=== PATIENT | female | born 1990 | race Caucasian/White ===

== ENCOUNTER 2020-05-02 13:25 | Emergency (ER) | payer MEDICAID ==
[2020-05-02 13:45] VITALS: BP 133/90; PULSE 90; O2SAT 100
[2020-05-02] MEDS ORDERED: MORPHINE SULFATE 4 MG INJ IM ONE (13:45)
[2020-05-02] MEDS ORDERED: MORPHINE SULFATE 4 MG INJ ONE (13:49)
--- NOTE | 2020-05-02 13:50 | ERPHSYRPT ---
- History of Present Illness Time Seen by Provider: 05/02/20 13:35 Source: patient Exam Limitations: no limitations Patient Subjective Stated Complaint: Pt stated that she "has a huge ball at the bottom of my vagina", pt first noticed a little burn last night and then felt a small ball, pt woke in the middle of the night with pain and states that it grew tremendously throughout the night Triage Nursing Assessment: Pt brought to the ER by her boyfriend, low grade fever, vitals wnl, rates pain 8/10, pulses normal, no other isssues at this time Physician History: 29 years old female presented in the ER with chief complaint of right-sided vaginal wall swelling since yesterday. Patient reports she noticed a small pea- sized bump area in the vagina wall last night and she woke up in the middle of the night with swelling almost the size of a walnut, moderate to severe intensity sharp throbbing pain which is aggravated with walking, palpation and no significant relieving factors. She also noticed some clear discharge. Earlier patient was having some burning urination as well. Denies any history of Bartholin cyst abscess in the past. Denies fever or chills. Timing/Duration: yesterday, gradual onset, worse Activites at Onset: rest Quality: sharpness, throbbing Onset Location: vaginal Pain Radiation: none Severity of Pain-Max: moderate Severity of Pain-Current: moderate Modifying Factors: Improves With: movement, palpation, urinating Associated Symptoms: denies symptoms Allergies/Adverse Reactions: No Known Drug Allergies Allergy (Verified 05/02/20 13:45) Travel Risk - International Travel Have you traveled outside of the country in past 3 weeks: No - Coronavirus Screening Are you exhibiting any of the following symptoms?: No Close contact with a COVID-19 positive Pt in past 14-21 Days: No - Review of Systems Constitutional: No Symptoms Eyes: No Symptoms Respiratory: No Symptoms Cardiac: No Symptoms Abdominal/Gastrointestinal: No Symptoms Genitourinary Symptoms: Dysuria, Vaginal Discharge Musculoskeletal: No Symptoms Skin: No Symptoms Neurological: No Symptoms Psychological: No Symptoms Endocrine: No Symptoms Hematologic/Lymphatic: No Symptoms Immunological/Allergic: No Symptoms - Past Medical History Pertinent Past Medical History: No - Past Surgical History Past Surgical History: Yes Musculoskeletal: Orthopedic Surgery Female Surgical History: Dilation & Curettage - Social History Smoking Status: Current every day smoker Exposure to second hand smoke: Yes Drug Use: none Patient Lives Alone: No - Female History Hx Last Menstrual Period: 04/13/2020 Hx Now: No - Nursing Vital Signs Nursing Vital Signs: Initial Vital Signs Temperature 99.8 F 05/02/20 13:31 Pulse Rate 90 05/02/20 13:31 Blood Pressure 133/90 05/02/20 13:31 O2 Sat by Pulse Oximetry 100 05/02/20 13:31 Pain Scale Pain Intensity 8 - Physical Exam General Appearance: no apparent distress Ears, Nose, Throat Exam: normal ENT inspection Neck Exam: normal inspection, supple, full range of motion Respiratory Exam: normal breath sounds, lungs clear Cardiovascular Exam: regular rate/rhythm, normal heart sounds Gastrointestinal/Abdomen Exam: soft, normal bowel sounds, No tenderness Pelvic Exam: vaginal discharge, other (3 x 3 cm swelling in the right upper v agina wall. Tenderness to touch. Soft to firm consistency. Positive fluctuation. ), No vaginal bleeding Extremity Exam: normal inspection, normal range of motion Neurologic Exam: alert, oriented x 3, cooperative Skin Exam: normal color SpO2 Interpretation: normal SpO2: 100 Procedures - Incision and Drainage Timeout: Performed Site: Right vaginal wall Anesthesia: 1% Lidocaine cc's of anesthesia: other (8) I & D Procedure: betadine prep Results: other Progress: Abscess cavity is decompressed. Word catheter is placed in. - Course Nursing assessment & vital signs reviewed: Yes Ordered Tests: Medication Summary Discontinued Medications Generic Name Dose Route Start Last Admin Trade Name Gee PRN Reason Stop Dose Admin Morphine Sulfate 4 mg 05/02/20 13:45 05/02/20 13:53 Morphine Sulfate 4 Mg Inj IM 05/02/20 13:46 4 mg STAT ONE Administration Morphine Sulfate Confirm 05/02/20 13:49 Morphine Sulfate 4 Mg Inj Administered 05/02/20 13:50 Dose 4 mg .ROUTE .STK-MED ONE Trimethoprim/Sulfamethoxazole 1 tab 05/02/20 14:12 05/02/20 14:15 Bactrim Ds Tablet PO 05/02/20 14:13 1 tab STAT STA Administration Trimethoprim/Sulfamethoxazole Confirm 05/02/20 14:14 Bactrim Ds Tablet Administered 05/02/20 14:15 Dose 1 tab PO .STK-MED ONE - Progress Progress: improved, re-examined Air Movement: good Progress Note: patient has Bartholin cyst. After informed consent incision and drainage done. mesa catheter is placed in. Started on antibiotics Bactrim. Outpatient follow-up with [facility]. 05/02/20 14:[address] Garcia, recommended continue with antibiotics, catheter and outpatient follow-up in 5 days. Blood Culture(s) Obtained: No Antibiotics given: Yes Discussed with DrArash: Arie Counseled pt/family regarding: diagnosis, need for follow-up - Departure Departure Disposition: Home Clinical Impression: Infected cyst of Bartholin's gland duct Condition: Stable Critical Care Time: No Referrals: SHON GARCIA DO [ACTIVE STAFF] - (5 days for re evaluation and catheter removal) Instructions: MRSA (DC), Wound Infection Additional Instructions: Keep it clean. Take pain medications as needed. Continue with antibiotics. Follow-up with primary care/[facility] for reevaluation. Use sitz bath. Return to ER for increasing pain swelling discharge/fever or chills. Prescriptions: Hydrocodone/APAP 5-325 Tab^^^ [[place] 5-325 Tablet^^^] 1 tab PO Q6HPRN PRN #10 tablet MDD 6 PRN Reason: Pain Smz/Tmp Ds Tablet [Bactrim Ds Tablet] 1 udtab PO BID #14 tablet
[2020-05-02] MEDS ORDERED: BACTRIM DS TABLET PO STA (14:12)
[2020-05-02] MEDS ORDERED: BACTRIM DS TABLET PO ONE (14:14)
== END 2020-05-02 14:29 | disposition home or self-care (01) ==
LOC: ED 13:25
DX: N75.0 Cyst of Bartholin's gland (principal)
CPT/HCPCS: 96372; 99283; J2270; A9270-GY

== ENCOUNTER 2022-06-22 13:32 | Observation (INO) | payer OTHER ==
[2022-06-22 14:54] LABS: Absolute Neutrophil Ct (ANC) 7.57 x10^3/uL (1.4-6.9); Basophil (Absolute #) 0.03 x10^3/uL (0-0.4); Eosinophil % 1.2 % (0.00-5.0); Eosinophil (Absolute #) 0.12 x10^3/uL (0-0.5); Hematocrit 29.9 % (35-47); Hemoglobin 9.9 g/dL (12.0-16.0); Lymphocyte (Absolute #) 1.42 x10^3/uL (1.0-4.6); Lymphocytes % 14.3 % (24.0-44.0); Mean Cell Volume 97.1 fL (78-100); Mean Corpuscular Hemoglobin 32.1 pg (26-32); Mean Corpuscular Hgb Concent. 33.1 g/dL (32-36); Mean Platelet Volume 10.3 fL (7.5-11.0); Monocytes % 7.1 % (0.0-12.0); Neutrophil % 76.5 % (36.0-66.0); Platelet Count 205 x10^3/uL (150-450); Red Blood Count 3.08 x10^6/uL (4.1-5.4); Red Cell Distribution Width 14.5 % (11.5-14.0); White Blood Count 9.9 x10^3/uL (4.0-10.5)
[2022-06-22 15:13] VITALS: BP 146/82; PULSE 92; O2SAT 97
[2022-06-22 15:13] LABS: ALBUMIN 3.6 g/dL (3.5-5.0); ALKALINE PHOSPHATASE 110 U/L (38-126); ANION GAP 10.9 MEQ/L (5-15); BLOOD UREA NITROGEN 5 mg/dL (7-17); CHLORIDE 109 mmol/L (98-107); Calcium 8.9 mg/dL (8.4-10.2); Carbon Dioxide 17 mmol/L (22-30); Creatinine 1 0.43 mg/dL (0.52-1.04); EST GLOMERULAR FILTRATION RATE > 60.0 ML/MIN; Glucose 99 mg/dL (74-106); Potassium 3.8 mmol/L (3.5-5.1); SGOT/AST 17 U/L (14-36); SGPT/ALT 15 U/L (0-35); SODIUM 134 mmol/L (137-145); Total Protein 6.9 g/dL (6.3-8.2); Uric Acid 5.4 mg/dL (2.6-6.0)
[2022-06-22 15:46] LABS: Appearance CLEAR (CLEAR); Bilirubin NEGATIVE (NEGATIVE); Glucose NEGATIVE (NEGATIVE); Ketones NEGATIVE (NEGATIVE); Nitrite NEGATIVE (NEGATIVE); Protein,Urine Dip NEGATIVE (Negative); RBC TRACE-INTACT Ery/ul (0-5); Urobilinogen 0.2 mg/dL (0-1)
[2022-06-22 15:47] LABS: Dipstick done @ ? MAIN LAB
[2022-06-22 16:04] LABS: Bacteria RARE /HPF (NEGATIVE); Epithelial Cells RARE /HPF (FEW); RBC 0-2 /HPF (0-2); WBC 0-2 /HPF (0-5)
[2022-06-22 16:05] LABS: Urine Cultured Indicated? NO
[2022-06-22 16:09] LABS: Protein Creatinine Ratio, Ran. 0.22 mg/mg (0.0-0.15)
[2022-06-22 16:14] LABS: Amphetamine,Urine NEGATIVE (NEGATIVE); Benzodiazepine,Urine NEGATIVE (NEGATIVE); Cocaine,Urine NEGATIVE (NEGATIVE); Methadone,Urine NEGATIVE (NEGATIVE); Opiate,Urine NEGATIVE (NEGATIVE); PCP,Urine NEGATIVE (NEGATIVE); THC,Urine NEGATIVE (NEGATIVE)
[2022-06-22 16:16] LABS: Barbiturate,Urine NEGATIVE (NEGATIVE)
== END 2022-06-22 16:38 | disposition home or self-care (01) ==
LOC: WHC 13:32 → OB 14:21
PROVIDERS: ADMIT Obstetrics & Gynecology; ATTEND Obstetrics & Gynecology
DX: Z34.82 Encounter for supervision of other normal pregnancy, second trimester (principal); Z3A.27 27 weeks gestation of pregnancy
CPT/HCPCS: 36415; 59425; 80053; 80307; 81002; 81015; 82570; 84156; 84550; 85025; G0378

== ENCOUNTER 2022-08-29 09:58 | Inpatient (IN) | payer OTHER ==
[2022-08-29] MEDS ORDERED: FENTANYL 2 MCG-BUPIV 0.125%-NS 250 ML Epidur 250 ML EPIDURAL SCH (17:00)
[2022-08-29] MEDS ORDERED: Nubain 10 MG/ML IV PRN (17:00)
[2022-08-29] MEDS ORDERED: PITOCIN 30 UNITS/ LR 500 ML 30 UNITS/500 ML PLAST..BAG IV SCH ×2 (17:00)
[2022-08-29] MEDS ORDERED: Lactated Ringers 1,000 ML IV ONE (17:00)
[2022-08-29] MEDS ORDERED: TYLENOL EXTRA STRENGTH 500 MG PO PRN (17:00)
[2022-08-29] MEDS ORDERED: STADOL 2 MG IV PRN (17:00)
[2022-08-29] MEDS ORDERED: XYLOCAINE 1% HCL 20 ML MDV IJ PRN (17:00)
[2022-08-29 18:19] LABS: Amphetamine,Urine NEGATIVE (NEGATIVE); Barbiturate,Urine NEGATIVE (NEGATIVE); Benzodiazepine,Urine NEGATIVE (NEGATIVE); Cocaine,Urine NEGATIVE (NEGATIVE); Methadone,Urine NEGATIVE (NEGATIVE); Opiate,Urine NEGATIVE (NEGATIVE); PCP,Urine NEGATIVE (NEGATIVE); THC,Urine NEGATIVE (NEGATIVE)
[2022-08-29 19:23] LABS: Basophil (Absolute #) 0.03 x10^3/uL (0-0.4); Eosinophil % 1.3 % (0.00-5.0); Eosinophil (Absolute #) 0.13 x10^3/uL (0-0.5); Hemoglobin 9.9 g/dL (12.0-16.0); Lymphocyte (Absolute #) 1.59 x10^3/uL (1.0-4.6); Lymphocytes % 16.3 % (24.0-44.0); Mean Cell Volume 97.5 fL (78-100); Mean Corpuscular Hemoglobin 31.1 pg (26-32); Mean Corpuscular Hgb Concent. 31.9 g/dL (32-36); Mean Platelet Volume 10.6 fL (7.5-11.0); Monocyte (Absolute #) 0.78 x10^3/uL (0.0-1.3); Neutrophil % 73.7 % (36.0-66.0); Platelet Count 233 x10^3/uL (150-450); Red Blood Count 3.18 x10^6/uL (4.1-5.4); Red Cell Distribution Width 14.5 % (11.5-14.0); White Blood Count 9.8 x10^3/uL (4.0-10.5)
[2022-08-29 19:38] LABS: INR 0.9 (0.8-3.0); PROTIME 9.6 SECONDS (9.4-12.5); PTT 29.3 SECONDS (25.1-36.5)
[2022-08-29 20:13] LABS: ABO TYPING O; Antibody Screen NEGATIVE (NEGATIVE); RH TYPING POSITIVE
[2022-08-29] MEDS ORDERED: Dextrose 5%-Lr IV Solution 1000 ML 1,000 ML IV SCH (21:00)
[2022-08-29] MEDS ORDERED: NORCO 5/325 MG PO PRN (21:14)
[2022-08-29] MEDS ORDERED: Mylicon 80MG PO PRN (21:14)
[2022-08-29] MEDS ORDERED: M-M-R II Vaccine With Diluent SQ ONE (21:14)
[2022-08-29] MEDS ORDERED: BRETHINE 1 MG/ML ONE (21:29)
[2022-08-29] MEDS ORDERED: BRETHINE 1 MG/ML SQ ONE (21:34)
[2022-08-29] MEDS ORDERED: SOD CITRATE-CITRIC ACID SOLN PO SCH (22:00)
[2022-08-29] MEDS ORDERED: OMNIPEN 2 GM*** 2 G in Sodium Chloride 100ML MINI-BAG PLUS 100 ML IV ONE (22:00)
[2022-08-29] MEDS ORDERED: Reglan 10 MG/2 ML IV SCH (22:00)
[2022-08-29] MEDS ORDERED: Pepcid 20 MG VIAL IV SCH (22:00)
[2022-08-29] MEDS: Lactated Ringers 1,000 ML IV SCH (22:10)
[2022-08-29 23:21] LABS: Bacteria RARE /HPF (NEGATIVE); Calcium Oxalate Crystals 26-50 /HPF (NEGATIVE); Epithelial Cells RARE /HPF (FEW); Mucus SLIGHT /HPF (NEGATIVE)
[2022-08-29 23:26] LABS: Appearance SLIGHTLY CLOUDY (CLEAR); Bilirubin NEGATIVE (NEGATIVE); Dipstick done @ ? MAIN LAB; Glucose NEGATIVE (NEGATIVE); Ketones NEGATIVE (NEGATIVE); Nitrite NEGATIVE (NEGATIVE); Protein,Urine Dip NEGATIVE (Negative); RBC LARGE Ery/ul (0-5); Urobilinogen 0.2 mg/dL (0-1)
[2022-08-29 23:27] LABS: RBC >101 /HPF (0-2)
[2022-08-29 23:28] LABS: Urine Cultured Indicated? YES
[2022-08-30] MEDS ORDERED: OMNIPEN 1 GM*** 1 GM in Sodium Chloride 100ML MINI-BAG PLUS 100 ML IV SCH (02:00)
[2022-08-30] MEDS: Trandate 100 MG PO SCH ×4 (03:52→23:57)
[2022-08-30] MEDS: Lactated Ringers 1,000 ML IV SCH (04:39)
[2022-08-30] MEDS ORDERED: CEFAZOLIN 2 GM-D5W BAG** 2 GM/50 ML ML IV SCH (07:00)
[2022-08-30] MEDS ORDERED: Zofran 4 MG/2 ML VIAL ONE (07:46)
[2022-08-30] MEDS ORDERED: Pitocin 10 UNITS/ML ONE ×2 (07:46→09:12)
[2022-08-30] MEDS ORDERED: OFIRMEV 100 ML IV ONE (07:47)
[2022-08-30] MEDS ORDERED: Sensorcaine 0.25% 10 ML ONE (07:47)
[2022-08-30] MEDS ORDERED: MORPHINE SULFATE 10 MG/ML ONE (07:48)
[2022-08-30] MEDS ORDERED: Lactated Ringers 1,000 ML IV ONE (07:48)
[2022-08-30] MEDS ORDERED: Astramorph-Pf 5 MG/10 ML ONE (07:50)
[2022-08-30] MEDS ORDERED: M-M-R II Vaccine With Diluent SQ ONE (09:00)
[2022-08-30] MEDS ORDERED: Ephedrine Sulfate 50 MG/ML ONE (09:34)
[2022-08-30] MEDS ORDERED: PHENYLEPHRINE HCL ONE (09:34)
[2022-08-30] MEDS ORDERED: ECOTRIN 81 MG PO SCH (10:00)
[2022-08-30] MEDS ORDERED: Adacel Vial IM ONE (10:00)
[2022-08-30] MEDS ORDERED: ASPIRIN 81 MG PO SCH (10:00)
[2022-08-30] MEDS: Zofran 4 MG/2 ML VIAL IV PRN ×2 (13:09→16:50)
[2022-08-30 14:06] LABS: Appearance CLEAR (CLEAR); Bilirubin NEGATIVE (NEGATIVE); Dipstick done @ ? MAIN LAB; Glucose NEGATIVE (NEGATIVE); Ketones NEGATIVE (NEGATIVE); Nitrite NEGATIVE (NEGATIVE); Protein,Urine Dip NEGATIVE (Negative); RBC NEGATIVE Ery/ul (0-5); Urobilinogen 0.2 mg/dL (0-1)
[2022-08-30 14:31] LABS: Epithelial Cells RARE /HPF (FEW); Mucus SLIGHT /HPF (NEGATIVE); RBC 0-2 /HPF (0-2)
[2022-08-30] MEDS: Docusate Sodium 100 MG PO SCH ×2 (14:56→23:57)
[2022-08-30] MEDS: FERREX 150 PO SCH (14:57)
[2022-08-30] MEDS ORDERED: EXPAREL 133 MG/10 ML VIAL IJ ONE (15:14)
[2022-08-30] MEDS: CEFAZOLIN 2 GM-D5W BAG** 2 GM/50 ML ML IV SCH ×2 (16:47→23:59)
[2022-08-30] MEDS ORDERED: Reglan 10 MG/2 ML IV PRN (17:44)
[2022-08-30] MEDS: ECOTRIN 81 MG PO SCH (20:04)
[2022-08-30] MEDS ORDERED: CLARITIN 10 MG PO PRN (21:36)
[2022-08-30] MEDS ORDERED: BENADRYL 50 MG/ML IV PRN (22:40)
[2022-08-30] MEDS: PERCOCET TABLET 5/325MG PO PRN (23:58)
[2022-08-31] MEDS ORDERED: LANSINOH 40 GM ONE (01:31)
[2022-08-31] MEDS ORDERED: LANSINOH 40 GM TOP PRN (01:49)
[2022-08-31 06:51] LABS: Hematocrit 26.4 % (35-47); Hemoglobin 8.6 g/dL (12.0-16.0); Mean Cell Volume 97.8 fL (78-100); Mean Corpuscular Hemoglobin 31.9 pg (26-32); Mean Corpuscular Hgb Concent. 32.6 g/dL (32-36); Mean Platelet Volume 10.3 fL (7.5-11.0); Platelet Count 212 x10^3/uL (150-450); Red Cell Distribution Width 14.9 % (11.5-14.0); White Blood Count 8.4 x10^3/uL (4.0-10.5)
[2022-08-31] MEDS: PERCOCET TABLET 5/325MG PO PRN (06:58)
--- NOTE | 2022-08-31 07:34 | PCM.NOTE ---
Date and Time: 08/31/22732 Subjective Assessment: pod 1 sp csection pt resting in bed and is able to ambulate and tolerate diet. vss afebrile abd; soft incision with dressing intact with minimal soiling. nondistended uterus; firm lochia; mild hgb; 8.6 a/p sp csection pod 1 anticipate discharge tomorrow cpm OBJECTIVE DATA Vital Signs: Vital Signs - 24 hr Temp Pulse Resp BP Pulse Ox 08/31/22 06:00 92 L 08/31/22 05:00 96 08/31/22 04:00 98.4 F 90 18 112/59 96 08/31/22 03:31 98.6 F 90 18 112/59 96 08/31/22 03:00 97 08/31/22 02:00 95 08/31/22 01:00 95 08/31/22 00:00 98.7 F 81 16 112/59 96 08/30/22 22:47 96 08/30/22 22:00 96 08/30/22 21:00 95 08/30/22 20:00 96 08/30/22 19:00 96 08/30/22 18:27 86 96 08/30/22 18:00 96 08/30/22 17:00 97 08/30/22 16:00 98 08/30/22 15:00 97 08/30/22 13:58 98 08/30/22 13:28 98 08/30/22 12:45 100 H 18 128/75 99 08/30/22 12:28 98 08/30/22 12:27 98.4 F 100 H 18 128/75 99 08/30/22 11:45 98.4 F 81 16 136/78 99 08/30/22 10:45 74 15 106/59 100 08/30/22 10:30 72 15 125/64 100 08/30/22 10:15 76 15 113/63 100 08/30/22 10:00 98.1 F 76 16 113/67 99 Pain Assessment - Last Documented Pain Intensity [Bilateral 3 Lower] Pain Intensity 6 Pain Scale Used 0-10 Pain Scale Intake and Output: Intake & Output 08/28/22 08/29/22 08/30/22 08/31/22 11:59 11:59 11:59 11:59 Intake Total 2500 5900 Output Total 5250 Balance 2500 650 Weight 128.82 kg Lab Results: Lab Results-Last 24 Hours 08/30/22 08/31/22 Range/Units 08:14 06:51 WBC 8.4 (4.0-10.5) x10^3/uL RBC 2.70 L (4.1-5.4) x10^6/uL Hgb 8.6 L (12.0-16.0) g/dL Hct 26.4 L (35-47) % MCV 97.8 (78-100) fL MCH 31.9 (26-32) pg MCHC 32.6 (32-36) g/dL RDW 14.9 H (11.5-14.0) % Plt Count 212 (150-450) x10^3/uL MPV 10.3 (7.5-11.0) fL Urinalys Dipstick Clnc MAIN LAB Urine Color YELLOW (YELLOW) Urine Appearance CLEAR (CLEAR) Urine pH 7.0 (5-6) Ur Specific [place] 1.020 (1.005-1.025) POC Urine Protein Conf NEGATIVE (Negative) Urine Ketones NEGATIVE (NEGATIVE) Urine Nitrite NEGATIVE (NEGATIVE) Urine Bilirubin NEGATIVE (NEGATIVE) Urine Urobilinogen 0.2 (0-1) mg/dL Urine Leukocytes NEGATIVE (NEGATIVE) Urine WBC (Auto) NONE (0-5) /HPF Urine RBC (Auto) 0-2 (0-2) /HPF U Epithel Cells (Auto) RARE (FEW) /HPF Urine Bacteria (Auto) NONE (NEGATIVE) /HPF Urine RBC NEGATIVE (0-5) Issac/ul Urine Mucus (Auto) SLIGHT A (NEGATIVE) /HPF Urine Glucose NEGATIVE (NEGATIVE) mg/dL Assessment/Plan (1) Chronic hypertension affecting Current Visit: Yes Status: Acute Code(s): O10.919 - UNSP PRE-EXISTING HTN COMP , UNSP TRIMESTER (2) S/P primary low transverse Current Visit: Yes Status: Acute Code(s): Z98.891 - HISTORY OF UTERINE SCAR FROM PREVIOUS SURGERY
[2022-08-31] MEDS ORDERED: ENOXAPARIN SODIUM SQ ONE (08:00)
[2022-08-31] MEDS: ECOTRIN 81 MG PO SCH (09:27)
[2022-08-31] MEDS: THERAGRAN MULTIVITAMIN PO SCH (09:27)
[2022-08-31] MEDS: Docusate Sodium 100 MG PO SCH ×2 (09:27→21:50)
[2022-08-31] MEDS: FERREX 150 PO SCH (09:27)
--- NOTE | 2022-08-31 10:08 | OP ---
SURGERY DATE/TIME: 08/30/2022 0748 PREOPERATIVE DIAGNOSIS: Intrauterine at 37 weeks gestation with chronic hypertension with non-reassuring heart rate tracing with repetitive late decelerations and arrest of dilatation. POSTOPERATIVE DIAGNOSIS: Intrauterine at 37 weeks gestation with chronic hypertension with non-reassuring heart rate tracing with repetitive late decelerations and arrest of dilatation. PROCEDURE: Primary section, low flap transverse uterine incision, Pfannenstiel skin incision. SURGEON: Tor Garcia D.O. PARTRIDGE FARMER: Kelsi Carmen, surgical technicians. ANESTHESIA: Spinal. ESTIMATED BLOOD LOSS: 426 cc. COMPLICATIONS: None. INDICATIONS: The risks, benefits, indications and alternatives of the procedure were reviewed with the patient prior to procedure. The patient understood the risk of infection, bleeding, bowel injury, bladder injury, ureteral injury, uterine perforation, pelvic infection and thromboembolic disorder associated with the surgery and desires to have this surgery as a possible means to alleviate her current medical condition. DESCRIPTION OF PROCEDURE AND FINDINGS: At this point the patient is taken to the operating room where her spinal anesthesia was found to be adequate. She was then prepared and draped in normal sterile fashion in the dorsal supine position with leftward tilt. A Pfannenstiel skin incision is made with a scalpel and carried through to the underlying layer of the fascia with a Bovie. The fascia was then incised in the midline and the incision extended laterally with Espinoza scissors. The superior aspect of the fascial incision was then grasped Allie clamps elevated and the underlying rectus muscles dissected off bluntly. Attention is then turned to the inferior aspect of this incision which in similar fashion was grasped, tented up with Allie clamps and the rectus muscles dissected off bluntly. The rectus muscles were then at the midline and the peritoneum identified, tented up and entered sharply with Metzenbaum scissors. The peritoneal incision was then extended superiorly and inferiorly with good visualization of the bladder. The bladder blade was then inserted and vesicouterine peritoneum identified, grasped with pickups and entered sharply with Metzenbaum scissors. This incision was then extended laterally and a bladder flap created digitally. The bladder blade was then re-inserted and the lower uterine segment incised in a transverse fashion with a scalpel. The uterine incision was then extended laterally with bandage scissors. The bladder blade was then removed and the infant's head was delivered atraumatically. The nose and mouth were suctioned with bulb suction and the cord clamped and cut. The infant was then handed off to the awaiting nurses. The placenta was then removed manually. The uterus exteriorized and cleared of all clots and debris. The uterine incision was repaired with 1-0 chromic in a running locked fashion. A second layer of the same suture was used to obtain excellent hemostasis. The uterus is then returned to the abdomen. The gutters were cleared of clots and the peritoneal muscles were closed with interrupted suture using 2-0 chromic suture. The fascia was re-approximated with 0 Vicryl in a running fashion. The subcutaneous layer was closed with 3-0 Vicryl suture and the skin was closed with absorbable raghavendra called INSORB. The patient tolerated the procedure well. Sponge, lap, needle and instrument counts were correct x2. The patient was then taken to the recovery room in stable condition. The patient delivered a live baby boy at 0828 hours. 's were 8 at 1 minute and 9 at 5 minutes. The patient was then taken to the recovery room in stable condition.
[2022-08-31] MEDS: Trandate 100 MG PO SCH ×2 (11:25→21:50)
[2022-08-31 12:17] LABS: HBsAg Screen Negative (Negative)
[2022-08-31 12:18] LABS: HIV Screen 4th Generation wRfx Non Reactive (Non Reactive)
[2022-08-31] MEDS: MOTRIN 400 MG PO PRN (16:39)
[2022-09-01] MEDS: MOTRIN 400 MG PO PRN (00:44)
--- NOTE | 2022-09-01 07:55 | PCM.NOTE ---
Date and Time: 09/01/22 0753 Subjective Assessment: pod 2 sp csection pt resting in bed and doing well however feeling depressed. ambulating and tolerating diet vss afebrile abd; soft incision with dressing intact uterus; firm lochia; mild a/p sp csection pod 2 with depression and htn will continue labetolol 100mg bid will start zoloft 50mg daily will continue iron supplementation monse dc home today should fu office next monday OBJECTIVE DATA Vital Signs: Vital Signs - 24 hr Temp Pulse Resp BP Pulse Ox 09/01/22 02:00 98.2 F 90 18 131/73 97 08/31/22 20:00 98.5 F 96 H 18 144/83 98 08/31/22 14:00 98.6 F 97 H 18 146/74 97 08/31/22 08:25 97.9 F 88 16 122/68 97 Pain Assessment - Last Documented Pain Intensity [Bilateral 2 Lower] Pain Intensity 0 Pain Scale Used 0-10 Pain Scale Intake and Output: Intake & Output 08/29/22 08/30/22 08/31/22 09/01/22 11:59 11:59 11:59 11:59 Intake Total 2500 5900 2300 Output Total 5250 Balance 2500 650 2300 Weight 128.82 kg Lab Results: Lab Results-Last 24 Hours 08/29/22 Range/Units 19:15 Hep Bs Antigen Negative (Negative) HIV 1&2 Ab/P24 Ag 4thGn Non Reactive (Non Reactive) Assessment/Plan (1) Chronic hypertension affecting Current Visit: Yes Status: Acute Code(s): O10.919 - UNSP PRE-EXISTING HTN COMP , UNSP TRIMESTER (2) S/P primary low transverse Current Visit: Yes Status: Acute Code(s): Z98.891 - HISTORY OF UTERINE SCAR FROM PREVIOUS SURGERY (3) depression Current Visit: Yes Status: Acute Code(s): F53.0 - DEPRESSION
--- NOTE | 2022-09-01 08:01 | PCM.DS ---
Discharge Summary Date of Admission: 08/29/22 22:00 Admitting Physician: SHON HEAD DO Consults: Consults on Case 08/29/22 17:00 Notify Anesthesia Provider PRN 08/29/22 21:38 Notify Anesthesia Provider PRN 08/29/22 21:52 Notify Physician OF ADMISSION 08/29/22 21:53 Notify Anesthesia Provider ROUTINE 08/30/22 03:02 Notify Physician OF ADMISSION Primary Care Provider: SHON HEAD DO Allergies Allergies No Known Drug Allergies Allergy (Verified 08/21/22 17:30) Hospital Summary - Hospital Course Hospital Course: pt admitted on aug 29 for induction with cytotec at 37 wks gestation being induced secondary to chronic htn as per advisement from [facility] and had one cytotec and was noted having late decelerations and cytotec subsequently discontinued. pt subsequently underwent csection on aug 30 without complication and was continued on her labetolol however 100mg bid and was stable on that dose. pt was noted having hgb at 8.6 and was advised to take iron supplementation bid. pt declined pain medication upon discharge and was advised to fu in office in 1 wk for incision check and bp evaluation. all questions answered to her satisfaction. pt did feel depressed prior to being discharged and zoloft 50mg was started. - Vitals & Intake/Output Vital Signs: Vital Signs Temperature 98.2 F 09/01/22 02:00 Pulse Rate 90 09/01/22 02:00 Respiratory Rate 18 09/01/22 02:00 Blood Pressure 131/73 09/01/22 02:00 O2 Sat by Pulse Oximetry 97 09/01/22 02:00 Intake & Output: Intake & Output 08/29/22 08/30/22 08/31/22 09/01/22 11:59 11:59 11:59 11:59 Intake Total 2500 5900 2300 Output Total 5250 Balance 2500 650 2300 Weight 128.82 kg - Lab Result Diagrams: 08/31/22 06:51 Lab Results-Last 24 Hrs: Lab Results-Last 24 Hours 08/29/22 Range/Units 19:15 Hep Bs Antigen Negative (Negative) HIV 1&2 Ab/P24 Ag 4thGn Non Reactive (Non Reactive) Micro Results-Entire Visit: Microbiology 08/29/22 17:45 Urine Culture - Final Clean Catch Midstream <10K NORMAL SKIN BRY PROBABLE SKIN CONTAMINANT 08/30/22 08:14 Urine Culture - Preliminary Catherized NO GROWTH TO DATE - Procedures and Test Procedures and Tests throughout Hospitalization: Therapy Orders & Screens 08/29/22 18:32 Smoking Cessation Education ONCE Comment: Diagnosis: CHRONIC HTN, IUGR Smoking Status: Current every day smoker How long have you smoked: 14 years Have you smoked in the past 12 months: Yes Approximately how many cigarettes per day: 7-8 Do you dip or chew tobacco: No 08/30/22 17:53 Standby ROUTINE Comment: Diagnosis: CHRONIC HTN, IUGR Final Diagnosis/Problem List - Final Discharge Diagnosis/Problem (1) Chronic hypertension affecting Current Visit: Yes Status: Acute Code(s): O10.919 - UNSP PRE-EXISTING HTN COMP , UNSP TRIMESTER (2) S/P primary low transverse Current Visit: Yes Status: Acute Code(s): Z98.891 - HISTORY OF UTERINE SCAR FROM PREVIOUS SURGERY (3) depression Current Visit: Yes Status: Acute Code(s): F53.0 - DEPRESSION - Discharge Disposition: Home, Self-Care Condition: Stable Prescriptions: New Sertraline HCl 50 mg [Zoloft 50 mg Tablet] 50 mg PO DAILY #30 tab Changed Labetalol HCl 100 mg [Trandate 100 MG] 100 mg PO BID #60 tablet No Action Vit No.179/Iron/Folic [ Tablet] 1 tab PO DAILY Aspirin [[place]] 81 mg PO DAILY Follow up with: SHON HEAD DO [Primary Care Provider] - 1 Week
[2022-09-01] MEDS: ECOTRIN 81 MG PO SCH (09:50)
[2022-09-01] MEDS: Trandate 100 MG PO SCH (09:50)
[2022-09-01] MEDS: Docusate Sodium 100 MG PO SCH (09:51)
[2022-09-01] MEDS: THERAGRAN MULTIVITAMIN PO SCH (09:51)
[2022-09-01] MEDS: FERREX 150 PO SCH (09:51)
[2022-09-01] MEDS ORDERED: ZOLOFT 50 MG TABLET PO SCH (10:00)
[2022-09-01 12:47] VITALS: PULSE 100
[2022-09-01 17:31] VITALS: BP 156/82; O2SAT 98
== END 2022-09-01 13:00 | disposition home or self-care (01) | DRG 788 ==
LOC: OB 16:56 → OBSVTOIN 22:00 → OB 22:00
PROVIDERS: ADMIT Obstetrics & Gynecology; ATTEND Obstetrics & Gynecology
PROC: 10D00Z1 Extraction of Products of Conception, Low, Open Approach (ICD-10-PCS; principal; 2022-08-30)
DX: O10.913 Unspecified pre-existing hypertension complicating pregnancy, third trimester (principal); O62.1 Secondary uterine inertia; O36.8330 Maternal care for abnormalities of the fetal heart rate or rhythm, third trimester, not applicable or unspecified; Z37.0 Single live birth; Z3A.37 37 weeks gestation of pregnancy; F53.0 Postpartum depression; Z20.828 Contact with and (suspected) exposure to other viral communicable diseases; Z98.891 History of uterine scar from previous surgery
CPT/HCPCS: 36415; 59025; 59514; 64488; 76937; 76942; 80307; 81001; 81015; 84112; 85025; 85027; 85610; 85730; 86850; 86900; 86901; 87086; 87340; 87389; 90384; 90471; 90707; 90715; 94799; 96372; 99213; J0690; J1200; J1650; J2270; J2274; J2370; J2405; J2590; L0625; A9270-GY

== ENCOUNTER 2024-03-21 01:37 | Observation (INO) | payer OTHER ==
[2024-03-21] MEDS ORDERED: Zofran 4 MG/2 ML VIAL ONE (02:20)
[2024-03-21] MEDS ORDERED: Sodium Chloride 0.9% 1000 ML 1,000 ML ONE (02:20)
[2024-03-21] MEDS: Zofran 4 MG/2 ML VIAL IV ONE (02:22)
[2024-03-21] MEDS: Sodium Chloride 0.9% 1000 ML 1,000 ML IV STA (02:22)
--- NOTE | 2024-03-21 02:22 | ERPHSYRPT ---
- History of Present Illness Time Seen by Provider: 03/21/24 02:10 Historian: patient Exam Limitations: no limitations Patient Subjective Stated Complaint: pt states she has been vomiting since monday Triage Nursing Assessment: pt ambulated into the er; pt is axo; CANTWELL; c/o vomiting; pt denies abd pain; c/o N/V denies D; abd is obese, soft, non tender; active bowel sounds in all quads; mucus membranes pink and moist; skin PDW; no respiratory distress present; tachycardic Physician History: 33-year-old female history of hypertension and CANTWELL, presents to emergency department for evaluation of nausea and vomiting. Symptoms started 4 days ago. Patient has not been able to hold down food or liquids. Patient tried to manage her nausea and vomiting at home. She tried to rehydrate herself with electrolyte drinks including Gatorade. This helped for short period however she resumed nausea and vomiting. Patient denies pain. She states her throat is sore but she attributes this to vomiting. No abdominal pain. No vaginal discharge. No urinary complaints. Patient denies fever. Symptoms are constant. Symptoms are moderate in intensity. No specific worsening or improving factors. Patient denies a history of the same. Patient voices no other complaints or concerns at this time. Portions of this note were created with voice recognition technology. There may be grammatical, spelling, punctuation or sound alike errors Timing/Duration: day(s) (4 days) Activities at Onset: none Quality: other (Denies abdominal pain) Pain Radiation: no radiation Severity of Pain-Max: moderate Severity of Pain-Current: moderate Modifying Factors: Improves With: nothing Associated Symptoms: other (Sore throat) Previous symptoms: no prior history Allergies/Adverse Reactions: No Known Drug Allergies Allergy (Verified 03/21/24 01:43) Home Medications: Atorvastatin Calcium 20 mg PO DAILY 03/21/24 [History] Lisinopril/Hydrochlorothiazide [Lisinopril-Hctz 10-12.5 mg Tab] 1 each PO DAILY 03/21/24 [History] Hx Tetanus, Diphtheria Vaccination/Date Given: Yes (08/23) Hx Influenza Vaccination/Date Given: No Hx Pneumococcal Vaccination/Date Given: No Immunizations Up to Date: No Travel Risk - International Travel Have you traveled outside of the country in past 3 weeks: No - Emerging Infectious Disease Are you exhibiting symptoms associated with any current EIDs: Yes Symptoms: Vomitting - Review of Systems Constitutional: No Symptoms, No Fever, No Chills Eyes: No Symptoms Ears, Nose, & Throat: No Symptoms Respiratory: No Symptoms, No Cough, No Dyspnea Cardiac: No Symptoms, No Chest Pain, No Edema, No Syncope Abdominal/Gastrointestinal: No Symptoms, No Abdominal Pain, No Nausea, No Vomiting, No Diarrhea Genitourinary Symptoms: No Symptoms, No Dysuria Musculoskeletal: No Symptoms, No Back Pain, No Neck Pain Skin: No Symptoms, No Rash Neurological: No Symptoms, No Dizziness, No Focal Weakness, No Sensory Changes Psychological: No Symptoms Endocrine: No Symptoms Hematologic/Lymphatic: No Symptoms Immunological/Allergic: No Symptoms All Other Systems: Reviewed and Negative - Past Medical History Pertinent Past Medical History: Yes Neurological History: Migraines ENT History: No Pertinent History Cardiac History: High Cholesterol, Hypertension Respiratory History: No Pertinent History Endocrine Medical History: No Pertinent History Musculoskeletal History: No Pertinent History GI Medical History: No Pertinent History History: No Pertinent History Psycho-Social History: No Pertinent History Female Reproductive Disorders: No Pertinent History - Past Surgical History Past Surgical History: Yes (dnc in 2009) Neuro Surgical History: No Pertinent History Cardiac: No Pertinent History Respiratory: No Pertinent History Gastrointestinal: No Pertinent History Genitourinary: No Pertinent History Musculoskeletal: No Pertinent History Female Surgical History: Dilation & Curettage, Section - Female History Hx Now: No - Social History Smoking Status: Light tobacco smoker How long have you smoked: 14 years Exposure to second hand smoke: Yes Drug Use: none Patient Lives Alone: No - Social Determinants of Health Will the patient participate in the screening: Yes Do you worry about a steady place to live?: No Do you have any problems with any of the following?: No known problems In the past 12 months,have you had to go without utilities?: No Transportation Issues: No Has anyone in your support network made you feel unsafe?: No Have you or anyone in your house had to go without enough: No - Nursing Vital Signs Nursing Vital Signs: Initial Vital Signs Temperature 97.1 F 03/21/24 01:55 Pulse Rate 115 H 03/21/24 01:55 Respiratory Rate 18 03/21/24 01:55 Blood Pressure 106/83 03/21/24 01:55 O2 Sat by Pulse Oximetry 94 L 03/21/24 01:55 Pain Scale Pain Intensity 0 - Physical Exam General Appearance: no apparent distress, alert Eye Exam: PERRL/EOMI, eyes nml inspection Ears, Nose, Throat Exam: normal ENT inspection, pharynx normal, moist mucous membranes Neck Exam: normal inspection, non-tender, supple, full range of motion Respiratory Exam: normal breath sounds, lungs clear, airway intact, No respiratory distress Cardiovascular Exam: regular rate/rhythm, normal heart sounds, normal peripheral pulses Gastrointestinal/Abdomen Exam: soft, No tenderness, No mass Back Exam: normal inspection, normal range of motion, No CVA tenderness, No vertebral tenderness Extremity Exam: normal inspection, normal range of motion, pelvis stable Neurologic Exam: alert, oriented x 3, cooperative, normal mood/affect, sensation nml, No motor deficits Skin Exam: normal color, warm, dry Lymphatic Exam: No adenopathy SpO2 Interpretation: normal SpO2: 96 O2 Delivery: Room Air - Course Nursing assessment & vital signs reviewed: Yes Ordered Tests: Active Orders 24 hr Category Date Time Status IV Insertion STAT Care 03/21/24 02:17 Active CBC W DIFF Stat Lab 03/21/24 02:13 Completed CMP Stat Lab 03/21/24 02:13 Completed HCG QUALITATIVE, URINE Stat Lab 03/21/24 03:33 Completed LIPASE Stat Lab 03/21/24 02:13 Completed TROPONIN Q4H Lab 03/21/24 02:13 Completed TROPONIN Q4H Lab 03/21/24 06:30 Ordered TROPONIN Q4H Lab 03/21/24 10:30 Ordered UA W/RFX UR CULTURE Stat Lab 03/21/24 03:33 Received Transfer Order Routine Transfer 03/21/24 Ordered Medication Summary Discontinued Medications Generic Name Dose Route Start Last Admin Trade Name Freq PRN Reason Stop Dose Admin Sodium Chloride 1,000 mls @ 999 mls/hr 03/21/24 02:17 03/21/24 03:26 Sodium Chloride 0.9% 1000 Ml IV 03/21/24 03:17 Infused .Q1H1M STA Infusion Sodium Chloride Confirm 03/21/24 02:20 Sodium Chloride 0.9% 1000 Ml Administered 03/21/24 02:21 Dose 1,000 mls @ ud .ROUTE .STK-MED ONE Ondansetron HCl 4 mg 03/21/24 02:17 03/21/24 02:22 Ondansetron Hcl 4 Mg/2 Ml Vial IV 03/21/24 02:18 4 mg STAT ONE Administration Ondansetron HCl Confirm 03/21/24 02:20 Ondansetron Hcl 4 Mg/2 Ml Vial Administered 03/21/24 02:21 Dose 4 mg .ROUTE .K-MED ONE Lab/Rad Data: Laboratory Result Diagrams 03/21/24 02:13 03/21/24 02:13 Laboratory Results 03/21/24 03/21/24 03/21/24 Range/Units 03:33 02:13 02:13 WBC (3.98-10.04) x10^3/uL RBC (3.93-5.22) x10^6/uL Hgb (11.2-15.7) g/dL Hct (34.1-44.9) % MCV (79.4-94.8) fL MCH (25.6-32.2) pg MCHC (32.2-35.5) g/dL RDW (11.7-14.4) % Plt Count (182-369) x10^3/uL MPV (9.4-12.3) fL Gran % (34.0-71.1) % Immature Gran % (Auto) (0.001-0.429) % Nucleat RBC Rel Count (0.00-0.2) % Eos # (Auto) (0.04-0.36) x10^3/uL Immature Gran # (Auto) (0.001-0.031) x10^3u/L Absolute Lymphs (auto) (1.18-3.74) x10^3/uL Absolute Monos (auto) (0.24-0.86) x10^3/uL Absolute Nucleated RBC (0.00-0.012) x10^3u/L Lymphocytes % (19.3-51.7) % Monocytes % (4.7-12.5) % Eosinophils % (0.7-5.8) % Basophils % (0.1-1.2) % Absolute Granulocytes (1.56-6.13) x10^3/uL Basophils # (0.01-0.08) x10^3/uL Sodium (135-145) mmol/L Potassium (3.5-5.1) mmol/L Chloride (98-107) mmol/L Carbon Dioxide (22-30) mmol/L Anion Gap (5-15) MEQ/L BUN (7-17) mg/dL Creatinine (0.52-1.04) mg/dL Estimated GFR ML/MIN Glucose (74-106) mg/dL Calcium (8.4-10.2) mg/dL Total Bilirubin (0.2-1.3) mg/dL AST (14-36) U/L ALT (0-35) U/L Alkaline Phosphatase (38-126) U/L Troponin I < 0.012 (0.000-0.033) ng/mL Serum Total Protein (6.3-8.2) g/dL Albumin (3.5-5.0) g/dL Lipase (23-300) U/L Urine HCG, Qual NEGATIVE (NEGATIVE) Group A Strep Antibody NOT DETECTED (NEGATIVE) 03/21/24 03/21/24 Range/Units 02:13 02:13 WBC 11.2 H (3.98-10.04) x10^3/uL RBC 4.34 (3.93-5.22) x10^6/uL Hgb 13.4 (11.2-15.7) g/dL Hct 40.1 (34.1-44.9) % MCV 92.4 (79.4-94.8) fL MCH 30.9 (25.6-32.2) pg MCHC 33.4 (32.2-35.5) g/dL RDW 13.6 (11.7-14.4) % Plt Count 272 (182-369) x10^3/uL MPV 10.6 (9.4-12.3) fL Gran % 78.5 H (34.0-71.1) % Immature Gran % (Auto) 0.4 (0.001-0.429) % Nucleat RBC Rel Count 0.0 (0.00-0.2) % Eos # (Auto) 0.03 L (0.04-0.36) x10^3/uL Immature Gran # (Auto) 0.04 H (0.001-0.031) x10^3u/L Absolute Lymphs (auto) 1.27 (1.18-3.74) x10^3/uL Absolute Monos (auto) 1.02 H (0.24-0.86) x10^3/uL Absolute Nucleated RBC 0.00 (0.00-0.012) x10^3u/L Lymphocytes % 11.3 L (19.3-51.7) % Monocytes % 9.1 (4.7-12.5) % Eosinophils % 0.3 L (0.7-5.8) % Basophils % 0.4 (0.1-1.2) % Absolute Granulocytes 8.79 H (1.56-6.13) x10^3/uL Basophils # 0.04 (0.01-0.08) x10^3/uL Sodium 138 (135-145) mmol/L Potassium 4.1 (3.5-5.1) mmol/L Chloride 100 (98-107) mmol/L Carbon Dioxide 23 (22-30) mmol/L Anion Gap 18.8 H (5-15) MEQ/L BUN 17 (7-17) mg/dL Creatinine 1.98 H (0.52-1.04) mg/dL Estimated GFR 33.4 ML/MIN Glucose 116 H (74-106) mg/dL Calcium 10.0 (8.4-10.2) mg/dL Total Bilirubin 0.70 (0.2-1.3) mg/dL AST 52 H (14-36) U/L ALT 74 H (0-35) U/L Alkaline Phosphatase 117 (38-126) U/L Troponin I (0.000-0.033) ng/mL Serum Total Protein 8.9 H (6.3-8.2) g/dL Albumin 4.7 (3.5-5.0) g/dL Lipase 42 (23-300) U/L Urine HCG, Qual (NEGATIVE) Group A Strep Antibody (NEGATIVE) - Progress Progress: improved Progress Note: 33-year-old female presents to our ED for evaluation of nausea and vomiting x 4 days. Patient had intermittent bouts of improvement over the 4 days and try to rehydrate herself with electrolyte fluids however vomiting eventually recurred. Upon arrival to our ED patient was observed to be tachycardic. Patient denied abdominal pain. No diarrhea. No rash. Physical exam showed hyperpigmentation of posterior tongue. Laboratory workup reveals acute renal injury with a creatinine of 1.98. Patient's last renal function showed a creatinine of 0.8. IV fluids administered. Patient received Zofran for nausea. Nausea improved patient requesting drinking water. Will admit for further evaluation and treatment. Case discussed with hospitalist who accepts admission at 0350. Patient also complained of a sore throat upon arrival. Rapid strep negative Patient now tolerating p.o. However she will require further treatment to restore acute renal injury which is likely prerenal from dehydration/nausea vomiting. Plan of care discussed with patient. She agrees to admission [facility] for further evaluation and treatment. Portions of this note were created with voice recognition technology. There may be grammatical, spelling, punctuation or sound alike errors Complexity problem addressed is moderate acute complicated. No critical care ti me. Complex of data reviewed and analyzed is extensive. Test ordered test reviewed results analyzed and correlated clinically with history and physical exam. Management discussed with hospitalist who accepts admission to observation. Risk of complication and or risk of morbidity/mortality of patient management is high. Patient requires hospitalization for further evaluation and treatment. Vital stable. Tachycardia resolved. Time spent to admit patient approximately 15 minutes. Plan of care established for shared decision making. No social determinants of health present impede follow-up. Portions of this note were created with voice recognition technology. There may be grammatical, spelling, punctuation or sound alike errors 03/21/24 03:55 03/21/24 03:59 UA significant for urinary tract infection. Gram Rocephin administered prior to transfer to floor. 03/21/24 04:13 Discussed with : Haylee (Case discussed with at 0350am) Counseled pt/family regarding: lab results, diagnosis - Departure Departure Disposition: Observation Clinical Impression: Nausea and vomiting, Sore throat, Dehydration, Tachycardia, High anion gap metabolic acidosis, Urinary tract infection, Proteinuria Condition: Stable Critical Care Time: No Referrals: REYNA MONTGOMERY NP [Primary Care Provider] - Follow up/PCP as directed Additional Instructions: Discharge/Care Plan REYNA MARSHALL was seen on 03/21/24 in the Emergency Room. The patient was counseled regarding Diagnosis,Lab results, Imaging studies, need for follow up and when to return to the Emergency Room. Prescriptions given: Discharge Note I have spoken with the patient and/or caregivers. I have explained the patient's condition, diagnosis and treatment plan based on the information available to me at this time. I have answered the patient's and/or caregiver's questions and addressed any concerns. The patient and/or caregivers have as good understanding of the patient's diagnosis, condition and treatment plan as can be expected at this point. The vital signs have been stable. The patient's condition is stable and appropriate for discharge from the emergency department. The patient will pursue further outpatient evaluation with the primary care physician or other designated or consulting physician as outlined in the discharge instructions. The patient and/or caregivers are agreeable to this plan of care and follow-up instructions have been explained in detail. The patient and/or caregivers have received these instruction. The patient/and or caregivers are aware that any significant change in condition or worsening of symptoms should prompt an immediate return to this or the closest emergency department or call 911.
[2024-03-21 02:30] LABS: Absolute Neutrophil Ct (ANC) 8.79 x10^3/uL (1.56-6.13); BASOPHIL % 0.4 % (0.1-1.2); Basophil (Absolute #) 0.04 x10^3/uL (0.01-0.08); Eosinophil % 0.3 % (0.7-5.8); Eosinophil (Absolute #) 0.03 x10^3/uL (0.04-0.36); Hematocrit 40.1 % (34.1-44.9); Hemoglobin 13.4 g/dL (11.2-15.7); IMMATURE GRAN # 0.04 x10^3u/L (0.001-0.031); IMMATURE GRAN % 0.4 % (0.001-0.429); Lymphocyte (Absolute #) 1.27 x10^3/uL (1.18-3.74); Lymphocytes % 11.3 % (19.3-51.7); Mean Cell Volume 92.4 fL (79.4-94.8); Mean Corpuscular Hemoglobin 30.9 pg (25.6-32.2); Mean Corpuscular Hgb Concent. 33.4 g/dL (32.2-35.5); Mean Platelet Volume 10.6 fL (9.4-12.3); Monocyte (Absolute #) 1.02 x10^3/uL (0.24-0.86); Monocytes % 9.1 % (4.7-12.5); Neutrophil % 78.5 % (34.0-71.1); Platelet Count 272 x10^3/uL (182-369); Red Blood Count 4.34 x10^6/uL (3.93-5.22); Red Cell Distribution Width 13.6 % (11.7-14.4); White Blood Count 11.2 x10^3/uL (3.98-10.04)
[2024-03-21 02:42] LABS: ALBUMIN 4.7 g/dL (3.5-5.0); ANION GAP 18.8 MEQ/L (5-15); BILIRUBIN,TOTAL 0.7 mg/dL (0.2-1.3); Creatinine 1 1.98 mg/dL (0.52-1.04); EST GLOMERULAR FILTRATION RATE 33.4 ML/MIN; Potassium 4.1 mmol/L (3.5-5.1); Total Protein 8.9 g/dL (6.3-8.2)
[2024-03-21 03:43] LABS: HCG URINE TEST NEGATIVE (NEGATIVE)
[2024-03-21 04:08] LABS: Appearance Turbid (Clear); Bacteria Many /HPF (None Seen); Bilirubin Small (Negative); Blood Negative (Negative); Epithelial Cells Moderate /HPF (None Seen); Glucose, Urine Negative (Negative); Ketones 15 (Negative); Leukocyte Esterase Small (Negative); Nitrite Negative (Negative); Ph 5.5 (4.6-8.0); Protein,Urine Dip 300 (Negative); RBC 21-50 /HPF (0-5); Specific Gravity 1.025 (1.005-1.030)
[2024-03-21 04:09] LABS: ADD URINE CULTURE? YES (NO); WBC 21-50 /HPF (0-5)
[2024-03-21] MEDS ORDERED: ROCEPHIN 1 GM / 100 ML NaCl 1 GM/100 ML IVPB IV ONE (04:13)
[2024-03-21] MEDS: ROCEPHIN 1 GM / 100 ML NaCl 1 GM/100 ML IVPB IV ONE (04:14)
[2024-03-21] MEDS ORDERED: Docusate Sodium 100 MG PO PRN ×2 (04:42→05:46)
[2024-03-21] MEDS ORDERED: TYLENOL 325 MG PO PRN ×2 (04:42→05:44)
[2024-03-21] MEDS: Sodium Chloride 0.9% 1000 ML 1,000 ML IV SCH ×2 (05:52→06:01)
[2024-03-21] MEDS: PROTONIX 40 MG IV IV SCH ×2 (05:52→06:01)
[2024-03-21 07:44] LABS: Mean Cell Volume 93.8 fL (79.4-94.8); Mean Corpuscular Hemoglobin 31.3 pg (25.6-32.2); Mean Corpuscular Hgb Concent. 33.3 g/dL (32.2-35.5); Mean Platelet Volume 10.7 fL (9.4-12.3); Platelet Count 218 x10^3/uL (182-369); Red Blood Count 3.84 x10^6/uL (3.93-5.22); Red Cell Distribution Width 13.9 % (11.7-14.4); White Blood Count 7.9 x10^3/uL (3.98-10.04)
[2024-03-21 08:05] LABS: ALBUMIN 3.6 g/dL (3.5-5.0); ANION GAP 16.8 MEQ/L (5-15); BILIRUBIN,TOTAL 0.5 mg/dL (0.2-1.3); Calcium 8.8 mg/dL (8.4-10.2); Creatinine 1 1.12 mg/dL (0.52-1.04); EST GLOMERULAR FILTRATION RATE 66.2 ML/MIN; Potassium 3.7 mmol/L (3.5-5.1); Total Protein 6.7 g/dL (6.3-8.2)
[2024-03-21] MEDS ORDERED: Acidophilus TABLET PO SCH (10:00)
[2024-03-21] MEDS ORDERED: NON-FORMULARY ITEM (Atorvastatin Calcium [Atorvastatin Calcium] 20 MG Tablet) PO SCH (10:00)
[2024-03-21] MEDS ORDERED: ROCEPHIN 1 GM / 100 ML NaCl 1 GM/100 ML IVPB IV SCH (10:00)
[2024-03-21] MEDS ORDERED: HEPARIN 5000 UNITS/0.5 ML (HIGH RISK MED) SQ SCH (10:00)
[2024-03-21] MEDS: Acidophilus TABLET PO SCH (10:02)
[2024-03-21] MEDS: HEPARIN 5000 UNITS/0.5 ML (HIGH RISK MED) SQ SCH (10:02)
[2024-03-21] MEDS ORDERED: Zofran 4 MG/2 ML VIAL IV PRN (10:46)
[2024-03-21] MEDS ORDERED: BENADRYL 25 MG CAPSULE PO PRN (10:47)
[2024-03-21] MEDS: BENADRYL 25 MG CAPSULE PO ONE (11:20)
[2024-03-21] MEDS: TYLENOL 325 MG PO PRN (11:20)
[2024-03-21] MEDS: CHLORASEPTIC SPRAY 180 ML PO PRN (11:21)
[2024-03-21] MEDS: PHARMACY DOSING REQUEST MC ONE (11:21)
--- NOTE | 2024-03-21 13:23 | PCM.HP ---
History of Present Illness - Chief Complaint Chief Complaint: N/V Date: 03/21/24 History of Present Illness: is a 33 year old female with pmhx of [place], Migraines, hyperlipidemia, HTN, smoker, and obesity. She presented to emergency department on 03/21/24 for evaluation of nausea and vomiting. Symptoms started 4 days ago. Patient has not been able to hold down food or liquids. Patient tried to manage her nausea and vomiting at home. She tried to rehydrate herself with electrolyte drinks including Gatorade. This helped for short period however she resumed nausea and vomiting. Patient denies pain. She states her throat is sore but she attributes this to vomiting. No abdominal pain. No vaginal discharge. No urinary complaints. Patient denies fever. Symptoms are constant. Symptoms are moderate in intensity. No specific worsening or improving factors. Patient denies a history of the same. Patient voices no other complaints or concerns at this time. Since admission N/V have resolved. DAVIDE improved with IVF. Rocephin started IV for UTI. Benadryl, tylenol, and throat spray added for throat pain. She will likely d/c tomorrow. She denies any further concerns at this time. - Review of Systems Constitutional: No Fever, No Chills Eyes: No Symptoms Ears, Nose, & Throat: No Symptoms, Throat Pain, Hoarse, Painful Swallowing Respiratory: No Cough, No Short Of Breath Cardiac: No Chest Pain, No Edema, No Syncope Abdominal/Gastrointestinal: No Abdominal Pain, No Nausea, No Vomiting, No Diarrhea Genitourinary Symptoms: No Dysuria Musculoskeletal: No Back Pain, No Neck Pain Skin: No Rash Neurological: No Dizziness, No Focal Weakness, No Sensory Changes Psychological: No Symptoms Endocrine: No Symptoms Hematologic/Lymphatic: No Symptoms Immunological/Allergic: No Symptoms Medications & Allergies Home Medications: Home Medication List Atorvastatin Calcium 20 mg PO 1500 03/21/24 [History Confirmed 03/21/24] Lisinopril/Hydrochlorothiazide [Lisinopril-Hctz 10-12.5 mg Tab] 1 each PO 1500 03/21/24 [History Confirmed 03/21/24] Allergies/Adverse Reactions: Allergies Allergy/AdvReac Type Severity Reaction Status Date / Time No Known Drug Allergies Allergy Verified 03/21/24 01:43 - Past Medical History Past Medical History: Yes Neurological History: Migraines ENT History: No Pertinent History Cardiac History: High Cholesterol, Hypertension Respiratory History: No Pertinent History Endocrine Medical History: No Pertinent History Musculoskelatal History: No Pertinent History GI Medical History: No Pertinent History History: No Pertinent History Pyscho-Social History: No Pertinent History Reproductive Disorders: No Pertinent History - Female History Are you now?: No - Past Surgical History Past Surgical History: Yes (dnc in 2009) Neuro Surgical History: No Pertinent History Cardiac History: No Pertinent History Respiratory Surgery: No Pertinent History GI Surgical History: No Pertinent History Genitourinary Surgical Hx: No Pertinent History Musculskeletal Surgical Hx: No Pertinent History Female Surgical History: Dilation & Curettage, Section - Social History Smoking Status: Unknown if ever smoked How long have you smoked: 14 years Exposure to second hand smoke: Yes Alcohol: None Drug Use: none - Social Determinants of Health Will the patient participate in the screening: Yes Do you worry about a steady place to live?: No Do you have any problems with any of the following?: No known problems In the past 12 months,have you had to go without utilities?: No Have you or anyone in your house had to go without enough: No Transportation Issues: No Has anyone in your support network made you feel unsafe?: No Does the patient want assistance with any of the above?: No - Physical Exam Vital Signs: Vital Signs - 24 hr Temp Pulse Resp BP BP Pulse Ox 03/21/24 11:38 98.1 F 86 18 132/65 93 L 03/21/24 08:00 98.6 F 95 H 20 121/79 91 L 03/21/24 05:04 96 03/21/24 04:56 98.4 F 109 H 18 125/73 97 03/21/24 04:14 96 03/21/24 04:00 93 H 106/81 98 03/21/24 03:32 92 H 138/87 97 03/21/24 03:00 102 H 112/78 95 03/21/24 02:30 99 H 101/70 96 03/21/24 02:00 107 H 99/74 96 03/21/24 01:55 97.1 F 115 H 18 106/83 94 L General Appearance: no apparent distress, alert, obese Neurologic Exam: alert, oriented x 3, cooperative, normal mood/affect, nml cerebellar function, nml station & gait, sensation nml, No motor deficits Eye Exam: PERRL/EOMI, eyes nml inspection Ears, Nose, Throat Exam: normal ENT inspection, TMs normal, pharynx normal, moist mucous membranes, pharyngeal erythema Neck Exam: normal inspection, non-tender, supple, full range of motion Respiratory Exam: normal breath sounds, lungs clear, No respiratory distress Cardiovascular Exam: regular rate/rhythm, normal heart sounds, normal peripheral pulses Gastrointestinal/Abdomen Exam: soft, normal bowel sounds, No tenderness, No mass Back Exam: normal inspection, normal range of motion, No CVA tenderness, No vertebral tenderness Extremity Exam: normal inspection, normal range of motion, pelvis stable Skin Exam: normal color, warm, dry, No rash Lymphatic Exam: No adenopathy Results - Labs Lab/Micro Results: Lab Results-Last 24 Hours 03/21/24 03/21/24 03/21/24 Range/Units 02:13 02:13 02:13 WBC 11.2 H (3.98-10.04) x10^3/uL RBC 4.34 (3.93-5.22) x10^6/uL Hgb 13.4 (11.2-15.7) g/dL Hct 40.1 (34.1-44.9) % MCV 92.4 (79.4-94.8) fL MCH 30.9 (25.6-32.2) pg MCHC 33.4 (32.2-35.5) g/dL RDW 13.6 (11.7-14.4) % Plt Count 272 (182-369) x10^3/uL MPV 10.6 (9.4-12.3) fL Gran % 78.5 H (34.0-71.1) % Immature Gran % (Auto) 0.4 (0.001-0.429) % Nucleat RBC Rel Count 0.0 (0.00-0.2) % Eos # (Auto) 0.03 L (0.04-0.36) x10^3/uL Immature Gran # (Auto) 0.04 H (0.001-0.031) x10^3u/L Absolute Lymphs (auto) 1.27 (1.18-3.74) x10^3/uL Absolute Monos (auto) 1.02 H (0.24-0.86) x10^3/uL Absolute Nucleated RBC 0.00 (0.00-0.012) x10^3u/L Lymphocytes % 11.3 L (19.3-51.7) % Monocytes % 9.1 (4.7-12.5) % Eosinophils % 0.3 L (0.7-5.8) % Basophils % 0.4 (0.1-1.2) % Absolute Granulocytes 8.79 H (1.56-6.13) x10^3/uL Basophils # 0.04 (0.01-0.08) x10^3/uL Sodium 138 (135-145) mmol/L Potassium 4.1 (3.5-5.1) mmol/L Chloride 100 (98-107) mmol/L Carbon Dioxide 23 (22-30) mmol/L Anion Gap 18.8 H (5-15) MEQ/L BUN 17 (7-17) mg/dL Creatinine 1.98 H (0.52-1.04) mg/dL Estimated GFR 33.4 ML/MIN Glucose 116 H (74-106) mg/dL Calcium 10.0 (8.4-10.2) mg/dL Total Bilirubin 0.70 (0.2-1.3) mg/dL AST 52 H (14-36) U/L ALT 74 H (0-35) U/L Alkaline Phosphatase 117 (38-126) U/L Troponin I < 0.012 (0.000-0.033) ng/mL Serum Total Protein 8.9 H (6.3-8.2) g/dL Albumin 4.7 (3.5-5.0) g/dL Lipase 42 (23-300) U/L Urine Color (Yellow) Urine Appearance (Clear) Urine pH (4.6-8.0) Ur Specific [place] (1.005-1.030) Urine Protein (Negative) Urine Glucose (UA) (Negative) mg/dL Urine Ketones (Negative) Urine Blood (Negative) Urine Nitrite (Negative) Urine Bilirubin (Negative) Urine Urobilinogen (0.2) mg/dL Ur Leukocyte Esterase (Negative) U Hyaline Cast (Auto) (0-2) /LPF Urine Microscopic RBC (0-5) /HPF Urine Microscopic WBC (0-5) /HPF Ur Epithelial Cells (None Seen) /HPF Urine Bacteria (None Seen) /HPF Urine Culture Reflexed (NO) Urine HCG, Qual (NEGATIVE) Group A Strep Antibody (NEGATIVE) 03/21/24 03/21/24 03/21/24 Range/Units 02:13 03:33 03:33 WBC (3.98-10.04) x10^3/uL RBC (3.93-5.22) x10^6/uL Hgb (11.2-15.7) g/dL Hct (34.1-44.9) % MCV (79.4-94.8) fL MCH (25.6-32.2) pg MCHC (32.2-35.5) g/dL RDW (11.7-14.4) % Plt Count (182-369) x10^3/uL MPV (9.4-12.3) fL Gran % (34.0-71.1) % Immature Gran % (Auto) (0.001-0.429) % Nucleat RBC Rel Count (0.00-0.2) % Eos # (Auto) (0.04-0.36) x10^3/uL Immature Gran # (Auto) (0.001-0.031) x10^3u/L Absolute Lymphs (auto) (1.18-3.74) x10^3/uL Absolute Monos (auto) (0.24-0.86) x10^3/uL Absolute Nucleated RBC (0.00-0.012) x10^3u/L Lymphocytes % (19.3-51.7) % Monocytes % (4.7-12.5) % Eosinophils % (0.7-5.8) % Basophils % (0.1-1.2) % Absolute Granulocytes (1.56-6.13) x10^3/uL Basophils # (0.01-0.08) x10^3/uL Sodium (135-145) mmol/L Potassium (3.5-5.1) mmol/L Chloride (98-107) mmol/L Carbon Dioxide (22-30) mmol/L Anion Gap (5-15) MEQ/L BUN (7-17) mg/dL Creatinine (0.52-1.04) mg/dL Estimated GFR ML/MIN Glucose (74-106) mg/dL Calcium (8.4-10.2) mg/dL Total Bilirubin (0.2-1.3) mg/dL AST (14-36) U/L ALT (0-35) U/L Alkaline Phosphatase (38-126) U/L Troponin I (0.000-0.033) ng/mL Serum Total Protein (6.3-8.2) g/dL Albumin (3.5-5.0) g/dL Lipase (23-300) U/L Urine Color Dark Yellow A (Yellow) Urine Appearance Turbid A (Clear) Urine pH 5.5 (4.6-8.0) Ur Specific [place] 1.025 (1.005-1.030) Urine Protein 300 A (Negative) Urine Glucose (UA) Negative (Negative) mg/dL Urine Ketones 15 A (Negative) Urine Blood Negative (Negative) Urine Nitrite Negative (Negative) Urine Bilirubin Small A (Negative) Urine Urobilinogen 1.0 A (0.2) mg/dL Ur Leukocyte Esterase Small A (Negative) U Hyaline Cast (Auto) 11-20 (0-2) /LPF Urine Microscopic RBC 21-50 A (0-5) /HPF Urine Microscopic WBC 21-50 A (0-5) /HPF Ur Epithelial Cells Moderate A (None Seen) /HPF Urine Bacteria Many A (None Seen) /HPF Urine Culture Reflexed YES (NO) Urine HCG, Qual NEGATIVE (NEGATIVE) Group A Strep Antibody NOT DETECTED (NEGATIVE) 03/21/24 03/21/24 03/21/24 Range/Units 06:50 06:50 06:50 WBC 7.9 (3.98-10.04) x10^3/uL RBC 3.84 L (3.93-5.22) x10^6/uL Hgb 12.0 (11.2-15.7) g/dL Hct 36.0 (34.1-44.9) % MCV 93.8 (79.4-94.8) fL MCH 31.3 (25.6-32.2) pg MCHC 33.3 (32.2-35.5) g/dL RDW 13.9 (11.7-14.4) % Plt Count 218 (182-369) x10^3/uL MPV 10.7 (9.4-12.3) fL Gran % (34.0-71.1) % Immature Gran % (Auto) (0.001-0.429) % Nucleat RBC Rel Count (0.00-0.2) % Eos # (Auto) (0.04-0.36) x10^3/uL Immature Gran # (Auto) (0.001-0.031) x10^3u/L Absolute Lymphs (auto) (1.18-3.74) x10^3/uL Absolute Monos (auto) (0.24-0.86) x10^3/uL Absolute Nucleated RBC (0.00-0.012) x10^3u/L Lymphocytes % (19.3-51.7) % Monocytes % (4.7-12.5) % Eosinophils % (0.7-5.8) % Basophils % (0.1-1.2) % Absolute Granulocytes (1.56-6.13) x10^3/uL Basophils # (0.01-0.08) x10^3/uL Sodium 140 (135-145) mmol/L Potassium 3.7 (3.5-5.1) mmol/L Chloride 106 (98-107) mmol/L Carbon Dioxide 21 L (22-30) mmol/L Anion Gap 16.8 H (5-15) MEQ/L BUN 17 (7-17) mg/dL Creatinine 1.12 H (0.52-1.04) mg/dL Estimated GFR 66.2 ML/MIN Glucose 96 (74-106) mg/dL Calcium 8.8 (8.4-10.2) mg/dL Total Bilirubin 0.50 (0.2-1.3) mg/dL AST 43 H (14-36) U/L ALT 61 H (0-35) U/L Alkaline Phosphatase 104 (38-126) U/L Troponin I < 0.012 (0.000-0.033) ng/mL Serum Total Protein 6.7 (6.3-8.2) g/dL Albumin 3.6 (3.5-5.0) g/dL Lipase (23-300) U/L Urine Color (Yellow) Urine Appearance (Clear) Urine pH (4.6-8.0) Ur Specific [place] (1.005-1.030) Urine Protein (Negative) Urine Glucose (UA) (Negative) mg/dL Urine Ketones (Negative) Urine Blood (Negative) Urine Nitrite (Negative) Urine Bilirubin (Negative) Urine Urobilinogen (0.2) mg/dL Ur Leukocyte Esterase (Negative) U Hyaline Cast (Auto) (0-2) /LPF Urine Microscopic RBC (0-5) /HPF Urine Microscopic WBC (0-5) /HPF Ur Epithelial Cells (None Seen) /HPF Urine Bacteria (None Seen) /HPF Urine Culture Reflexed (NO) Urine HCG, Qual (NEGATIVE) Group A Strep Antibody (NEGATIVE) 03/21/24 Range/Units 10:38 WBC (3.98-10.04) x10^3/uL RBC (3.93-5.22) x10^6/uL Hgb (11.2-15.7) g/dL Hct (34.1-44.9) % MCV (79.4-94.8) fL MCH (25.6-32.2) pg MCHC (32.2-35.5) g/dL RDW (11.7-14.4) % Plt Count (182-369) x10^3/uL MPV (9.4-12.3) fL Gran % (34.0-71.1) % Immature Gran % (Auto) (0.001-0.429) % Nucleat RBC Rel Count (0.00-0.2) % Eos # (Auto) (0.04-0.36) x10^3/uL Immature Gran # (Auto) (0.001-0.031) x10^3u/L Absolute Lymphs (auto) (1.18-3.74) x10^3/uL Absolute Monos (auto) (0.24-0.86) x10^3/uL Absolute Nucleated RBC (0.00-0.012) x10^3u/L Lymphocytes % (19.3-51.7) % Monocytes % (4.7-12.5) % Eosinophils % (0.7-5.8) % Basophils % (0.1-1.2) % Absolute Granulocytes (1.56-6.13) x10^3/uL Basophils # (0.01-0.08) x10^3/uL Sodium (135-145) mmol/L Potassium (3.5-5.1) mmol/L Chloride (98-107) mmol/L Carbon Dioxide (22-30) mmol/L Anion Gap (5-15) MEQ/L BUN (7-17) mg/dL Creatinine (0.52-1.04) mg/dL Estimated GFR ML/MIN Glucose (74-106) mg/dL Calcium (8.4-10.2) mg/dL Total Bilirubin (0.2-1.3) mg/dL AST (14-36) U/L ALT (0-35) U/L Alkaline Phosphatase (38-126) U/L Troponin I < 0.012 (0.000-0.033) ng/mL Serum Total Protein (6.3-8.2) g/dL Albumin (3.5-5.0) g/dL Lipase (23-300) U/L Urine Color (Yellow) Urine Appearance (Clear) Urine pH (4.6-8.0) Ur Specific [place] (1.005-1.030) Urine Protein (Negative) Urine Glucose (UA) (Negative) mg/dL Urine Ketones (Negative) Urine Blood (Negative) Urine Nitrite (Negative) Urine Bilirubin (Negative) Urine Urobilinogen (0.2) mg/dL Ur Leukocyte Esterase (Negative) U Hyaline Cast (Auto) (0-2) /LPF Urine Microscopic RBC (0-5) /HPF Urine Microscopic WBC (0-5) /HPF Ur Epithelial Cells (None Seen) /HPF Urine Bacteria (None Seen) /HPF Urine Culture Reflexed (NO) Urine HCG, Qual (NEGATIVE) Group A Strep Antibody (NEGATIVE) Assessment/Plan (1) Nausea and vomiting Current Visit: Yes Status: Resolved Assessment & Plan: - Zofran PRN - IVF - refuses tele Code(s): R11.2 - NAUSEA WITH VOMITING, UNSPECIFIED (2) DAVIDE (acute kidney injury) Current Visit: Yes Status: Acute Assessment & Plan: - improving, creat 1.12- baseline 0.80 - 2:2 N/V, dehydration Code(s): N17.9 - ACUTE KIDNEY FAILURE, UNSPECIFIED (3) Dehydration Current Visit: Yes Status: Acute Assessment & Plan: - 2:2 N/V - Continue IVF - monitor labs Code(s): E86.0 - DEHYDRATION (4) High anion gap metabolic acidosis Current Visit: Yes Status: Acute Assessment & Plan: - 2:2 N/V - Improving anion gap 16.8 - IVF Code(s): E87.29 - OTHER ACIDOSIS (5) Sore throat Current Visit: Yes Status: Acute Assessment & Plan: - 2:2 N/V - Benadryl, tylenol, throat spray - refused cough drops Code(s): J02.9 - ACUTE PHARYNGITIS, UNSPECIFIED (6) Urinary tract infection Current Visit: Yes Status: Acute Assessment & Plan: - Rocephin IV - IVF - UC pending Code(s): N39.0 - URINARY TRACT INFECTION, SITE NOT SPECIFIED (7) Morbid obesity with BMI of 45.0-49.9, adult Current Visit: Yes Status: Chronic Assessment & Plan: advised diet and exercise control VTE: Heparin PPI: Pantoprazole Next of KIN: Hattie Bradford [phone] D/C plan: tomorrow Code status: Full Code(s): E66.01 - MORBID (SEVERE) OBESITY DUE TO EXCESS CALORIES; Z68.42 - BODY MASS INDEX [BMI] 45.0-49.9, ADULT
[2024-03-21] MEDS: ZOCOR 20MG PO SCH (20:29)
[2024-03-21 21:19] VITALS: O2SAT 95
[2024-03-22 05:15] LABS: Hematocrit 33.1 % (34.1-44.9); Hemoglobin 10.9 g/dL (11.2-15.7); Mean Cell Volume 93.5 fL (79.4-94.8); Mean Corpuscular Hemoglobin 30.8 pg (25.6-32.2); Mean Corpuscular Hgb Concent. 32.9 g/dL (32.2-35.5); Mean Platelet Volume 10.5 fL (9.4-12.3); Platelet Count 196 x10^3/uL (182-369); Red Blood Count 3.54 x10^6/uL (3.93-5.22); Red Cell Distribution Width 13.6 % (11.7-14.4); White Blood Count 5.1 x10^3/uL (3.98-10.04)
[2024-03-22 05:52] LABS: ANION GAP 12.4 MEQ/L (5-15); Calcium 8.4 mg/dL (8.4-10.2); Creatinine 1 0.67 mg/dL (0.52-1.04); EST GLOMERULAR FILTRATION RATE 117.6 ML/MIN; Potassium 3.9 mmol/L (3.5-5.1)
[2024-03-22 07:14] VITALS: BP 127/82; PULSE 75; RESP 18; TEMP 97.6
--- NOTE | 2024-03-22 10:57 | PCM.DS ---
Discharge Summary Date of Admission: 03/21/24 04:38 Date of Discharge: 03/22/24 Admitting Physician: KALPANA BLACK MD Primary Care Provider: REYNA MONTGOMERY Allergies Allergies No Known Drug Allergies Allergy (Verified 03/21/24 01:43) Hospital Summary - Hospital Course Hospital Course: 03/21/24 is a 33 year old female with pmhx of [place], Migraines, hyperlipidemia, HTN, smoker, and obesity. She presented to emergency department on 03/21/24 for evaluation of nausea and vomiting. Symptoms started 4 days ago. Patient has not been able to hold down food or liquids. Patient tried to manage her nausea and vomiting at home. She tried to rehydrate herself with electrolyte drinks including Gatorade. This helped for short period however she resumed nausea and vomiting. Patient denies pain. She states her throat is sore but she attrib utes this to vomiting. No abdominal pain. No vaginal discharge. No urinary complaints. Patient denies fever. Symptoms are constant. Symptoms are moderate in intensity. No specific worsening or improving factors. Patient denies a history of the same. Patient voices no other complaints or concerns at this time. Since admission N/V have resolved. DAVIDE improved with IVF. Rocephin started IV for UTI. Benadryl, tylenol, and throat spray added for throat pain. She will likely d/c tomorrow. She denies any further concerns at this time. 03/22/24 Pt resting in bed. She is feeling much better today and throat is not as sore. DAVIDE has resolved. She is no longer having N/V. Will continue continue antibiotics OP for UTI. UC pending and will continue to follow OP. She denies CP, SOB, abd. pain , N/V/D. - Vitals & Intake/Output Vital Signs: Vital Signs Temperature 97.6 F 03/22/24 07:14 Pulse Rate 75 03/22/24 07:14 Respiratory Rate 18 03/22/24 07:14 Blood Pressure 127/82 03/22/24 07:14 O2 Sat by Pulse Oximetry 95 03/22/24 07:14 Intake & Output: Intake & Output 03/19/24 03/20/24 03/21/24 03/22/24 11:59 11:59 11:59 11:59 Intake Total 320 3300 Balance 320 3300 Weight 137.212 kg - Lab Result Diagrams: 03/22/24 04:53 03/22/24 04:53 Lab Results-Last 24 Hrs: Lab Results-Last 24 Hours 03/21/24 03/22/24 03/22/24 Range/Units 10:38 04:53 04:53 WBC 5.1 (3.98-10.04) x10^3/uL RBC 3.54 L (3.93-5.22) x10^6/uL Hgb 10.9 L (11.2-15.7) g/dL Hct 33.1 L (34.1-44.9) % MCV 93.5 (79.4-94.8) fL MCH 30.8 (25.6-32.2) pg MCHC 32.9 (32.2-35.5) g/dL RDW 13.6 (11.7-14.4) % Plt Count 196 (182-369) x10^3/uL MPV 10.5 (9.4-12.3) fL Sodium 141 (135-145) mmol/L Potassium 3.9 (3.5-5.1) mmol/L Chloride 109 H (98-107) mmol/L Carbon Dioxide 23 (22-30) mmol/L Anion Gap 12.4 (5-15) MEQ/L BUN 10 (7-17) mg/dL Creatinine 0.67 (0.52-1.04) mg/dL Estimated GFR 117.6 ML/MIN Glucose 82 (74-106) mg/dL Calcium 8.4 (8.4-10.2) mg/dL Troponin I < 0.012 (0.000-0.033) ng/mL Micro Results-Entire Visit: Microbiology 03/21/24 03:33 Urine Culture - Final Urine, Void <10K NORMAL SKIN BRY PROBABLE SKIN CONTAMINANT Discharge Exam General Appearance: no apparent distress, alert Neurologic Exam: alert, oriented x 3, cooperative, normal mood/affect, nml cerebellar function, sensation nml, No motor deficits Eye Exam: PERRL, EOMI, eyes nml inspection Ears, Nose, Throat Exam: normal ENT inspection, pharynx normal, moist mucous membranes, pharyngeal erythema Neck Exam: normal inspection, non-tender, supple, full range of motion Respiratory Exam: normal breath sounds, lungs clear, No respiratory distress Cardiovascular Exam: regular rate/rhythm, normal heart sounds Gastrointestinal/Abdomen Exam: soft, No tenderness, No mass Pelvic Exam: deferred Rectal Exam: deferred Back Exam: normal inspection, normal range of motion, No CVA tenderness, No vertebral tenderness Extremity Exam: normal inspection, normal range of motion Skin Exam: normal color, warm, dry Final Diagnosis/Problem List - Final Discharge Diagnosis/Problem (1) Nausea and vomiting Current Visit: Yes Status: Resolved Code(s): R11.2 - NAUSEA WITH VOMITING, UNSPECIFIED (2) DAVIDE (acute kidney injury) Current Visit: Yes Status: Acute Code(s): N17.9 - ACUTE KIDNEY FAILURE, UNSPECIFIED (3) Dehydration Current Visit: Yes Status: Acute Code(s): E86.0 - DEHYDRATION (4) High anion gap metabolic acidosis Current Visit: Yes Status: Acute Code(s): E87.29 - OTHER ACIDOSIS (5) Sore throat Current Visit: Yes Status: Acute Code(s): J02.9 - ACUTE PHARYNGITIS, UNSPECIFIED (6) Urinary tract infection Current Visit: Yes Status: Acute Code(s): N39.0 - URINARY TRACT INFECTION, SITE NOT SPECIFIED (7) Morbid obesity with BMI of 45.0-49.9, adult Current Visit: Yes Status: Chronic Assessment & Plan: (1) Nausea and vomiting Current Visit: Yes Status: Resolved Assessment & Plan: - Zofran PRN - IVF - refuses tele 03/22 - will d/c with Zofran SL - N/V resolved Code(s): R11.2 - NAUSEA WITH VOMITING, UNSPECIFIED (2) DAVIDE (acute kidney injury) Current Visit: Yes Status: Acute Assessment & Plan: - improving, creat 1.12- baseline 0.80 - 2:2 N/V, dehydration 03/22 - resolved Code(s): N17.9 - ACUTE KIDNEY FAILURE, UNSPECIFIED (3) Dehydration Current Visit: Yes Status: Acute Assessment & Plan: - 2:2 N/V - Continue IVF - monitor labs 03/22 - resolved Code(s): E86.0 - DEHYDRATION (4) High anion gap metabolic acidosis Current Visit: Yes Status: Acute Assessment & Plan: - 2:2 N/V - Improving anion gap 16.8 - IVF 03/22 - resolved Code(s): E87.29 - OTHER ACIDOSIS (5) Sore throat Current Visit: Yes Status: Acute Assessment & Plan: - 2:2 N/V - Benadryl, tylenol, throat spray - refused cough drops 03/22 - improved- can take home throat spray and may use OTC tylenol for pain OP Code(s): J02.9 - ACUTE PHARYNGITIS, UNSPECIFIED (6) Urinary tract infection Current Visit: Yes Status: Acute Assessment & Plan: - Rocephin IV - IVF - UC pending 03/22/24 - Continue cefuroximine OP Code(s): N39.0 - URINARY TRACT INFECTION, SITE NOT SPECIFIED (7) Morbid obesity with BMI of 45.0-49.9, adult Current Visit: Yes Status: Chronic Assessment & Plan: advised diet and exercise control Code(s): E66.01 - MORBID (SEVERE) OBESITY DUE TO EXCESS CALORIES; Z68.42 - BODY MASS INDEX [BMI] 45.0-49.9, ADULT - Discharge Discharge Date: 03/22/24 Disposition: Home, Self-Care Condition: Stable Prescriptions: New Phenol/Sodium Phenolate [Chloraseptic [place] 180 ml] 1 ea PO Q2H PRN PRN Continue Lisinopril/Hydrochlorothiazide [Lisinopril-Hctz 10-12.5 mg Tab] 1 each PO 1500 Atorvastatin Calcium 20 mg PO 1500 Additional Instructions: Can use OTC tylenol and benadryl for sore throat pain- following label directions. Gargle with warm salt water to help with pain as well. Follow up with: REYNA MONTGOMERY NP [Primary Care Provider] - 03/26/24 10:00 am
[2024-03-22] MEDS ORDERED: ROCEPHIN 1 GM / 100 ML NaCl 1 GM/100 ML IVPB IV SCH (22:00)
== END 2024-03-22 11:38 | disposition home or self-care (01) ==
LOC: ED 01:37 → MED SURG 04:38
PROVIDERS: ADMIT Internal Medicine; ATTEND Internal Medicine
DX: R11.2 Nausea with vomiting, unspecified (principal); N17.9 Acute kidney failure, unspecified; E86.0 Dehydration; E87.29 Other acidosis; J02.9 Acute pharyngitis, unspecified; N39.0 Urinary tract infection, site not specified; E66.01 Morbid (severe) obesity due to excess calories; I10 Essential (primary) hypertension; E78.5 Hyperlipidemia, unspecified; F17.200 Nicotine dependence, unspecified, uncomplicated; Z68.42 Body mass index [BMI] 45.0-49.9, adult; Z79.899 Other long term (current) drug therapy
CPT/HCPCS: 36000; 36415; 80048; 80053; 81001; 81025; 83690; 84484; 85025; 85027; 87086; 87651; 96360; 96365; 96374; 99285; Q3014; 93268; J0696; J1644; J2405; A9270-GY; G0378

== ENCOUNTER 2024-03-29 18:33 | Emergency (ER) | payer OTHER ==
[2024-03-29 18:54] VITALS: RESP 18; TEMP 97
--- NOTE | 2024-03-29 18:55 | ERPHSYRPT ---
- History of Present Illness Time Seen by Provider: 03/29/24 18:54 Historian: patient, family Exam Limitations: no limitations Physician History: This is a morbidly obese 33-year-old white female patient of nurse practitioner Jory who presents to the emergency department with complaint of intermittent, persistent episodes of vomiting. Patient was evaluated here in our emergency department on 03/21/2024 for the same symptoms. She was admitted into the hospital then discharged to home. I reviewed the admission in terms of the workup results including labs and radiographic studies. On 03/24/2024, patient was seen at [facility] emergency department and diagnosed with vasovagal response and was discharged from the emergency department on that day. On 03/26/2024 the patient was seen by a nurse practitioner Jory who placed her on a Holter monitor. The patient has not seen a mineral surveyor and has not had a gallbladder ultrasound performed. The patient still has her appendix in place. Patient does not complain of any significant abdominal pain. Patient has not had any vaginal discharge. Patient has a history of hyperlipidemia, hypertension and migraine headache. Patient denies chest pain and she denies shortness of breath. Timing/Duration: week(s) (2), other (Not necessarily worse but persistent, intermittent symptoms) Activities at Onset: none Severity of Pain-Max: none Severity of Pain-Current: none Modifying Factors: Improves With: vomiting Associated Symptoms: loss of appetite, nausea, vomiting, weakness Previous symptoms: same symptoms as today, recently seen, recent hospitalization, recently treated Allergies/Adverse Reactions: No Known Drug Allergies Allergy (Verified 03/29/24 18:51) Home Medications: Atorvastatin Calcium 20 mg PO 1500 03/21/24 [History] Lisinopril/Hydrochlorothiazide [Lisinopril-Hctz 10-12.5 mg Tab] 1 each PO 1500 03/21/24 [History] Hx Tetanus, Diphtheria Vaccination/Date Given: Yes (08/23) Hx Influenza Vaccination/Date Given: No Hx Pneumococcal Vaccination/Date Given: No Travel Risk - International Travel Have you traveled outside of the country in past 3 weeks: No - Emerging Infectious Disease Are you exhibiting symptoms associated with any current EIDs: Yes Symptoms: Cough: New Onset, Headaches/Body Aches/, Vomitting Comment: pt states her throat is very raw - Review of Systems Constitutional: Weakness Eyes: No Symptoms Ears, Nose, & Throat: No Symptoms Respiratory: No Symptoms Cardiac: No Symptoms Abdominal/Gastrointestinal: Nausea, Vomiting, Appetite Changes Genitourinary Symptoms: No Symptoms Musculoskeletal: No Symptoms Skin: No Symptoms Neurological: No Symptoms Psychological: No Symptoms Endocrine: No Symptoms Hematologic/Lymphatic: No Symptoms Immunological/Allergic: No Symptoms All Other Systems: Reviewed and Negative - Past Medical History Pertinent Past Medical History: Yes Neurological History: Migraines ENT History: No Pertinent History Cardiac History: High Cholesterol, Hypertension Respiratory History: No Pertinent History Endocrine Medical History: No Pertinent History Musculoskeletal History: No Pertinent History GI Medical History: No Pertinent History History: No Pertinent History Psycho-Social History: No Pertinent History Female Reproductive Disorders: No Pertinent History Other Medical History: uti 2023 - Past Surgical History Past Surgical History: Yes (dnc in 2009) Neuro Surgical History: No Pertinent History Cardiac: No Pertinent History Respiratory: No Pertinent History Gastrointestinal: No Pertinent History Genitourinary: No Pertinent History Musculoskeletal: No Pertinent History Female Surgical History: Dilation & Curettage, Section - Social History Smoking Status: Unknown if ever smoked How long have you smoked: 14 years Exposure to second hand smoke: Yes Drug Use: none Patient Lives Alone: No - Social Determinants of Health Will the patient participate in the screening: Yes Do you worry about a steady place to live?: No In the past 12 months,have you had to go without utilities?: No Transportation Issues: No Has anyone in your support network made you feel unsafe?: No Have you or anyone in your house had to go without enough: No - Nursing Vital Signs Nursing Vital Signs: Initial Vital Signs Temperature 97.0 F 03/29/24 18:52 Pulse Rate 98 H 03/29/24 18:52 Respiratory Rate 18 03/29/24 18:52 Blood Pressure 114/77 03/29/24 18:52 O2 Sat by Pulse Oximetry 97 03/29/24 18:52 Pain Scale Pain Intensity 0 - Physical Exam General Appearance: no apparent distress, alert, anxiety, obese Eye Exam: PERRL/EOMI, eyes nml inspection Ears, Nose, Throat Exam: normal ENT inspection, moist mucous membranes Neck Exam: normal inspection, non-tender, supple, full range of motion Respiratory Exam: normal breath sounds, lungs clear, airway intact, No chest tenderness, No respiratory distress Cardiovascular Exam: regular rate/rhythm, normal heart sounds, normal peripheral pulses Gastrointestinal/Abdomen Exam: soft, normal bowel sounds, No tenderness Pelvic Exam: not done Rectal Exam: not done Back Exam: normal inspection, normal range of motion, No CVA tenderness, No vertebral tenderness Extremity Exam: normal inspection, normal range of motion, pelvis stable Neurologic Exam: alert, oriented x 3, cooperative, joy operator helper II-XII nml as tested, nml cerebellar function, nml station & gait, sensation nml, depressed mood/affect Skin Exam: normal color, warm, dry Lymphatic Exam: No adenopathy SpO2 Interpretation: normal SpO2: 97 O2 Delivery: Room Air - Course Nursing assessment & vital signs reviewed: Yes Ordered Tests: Active Orders 24 hr Category Date Time Status EKG-ER Only STAT Care 03/29/24 20:08 Active IV Insertion STAT Care 03/29/24 19:16 Active ABDOMEN AND PELVIS W/0 CONTRAS [CT] Stat Exams 03/29/24 19:17 Completed AMYLASE Stat Lab 03/29/24 19:34 Completed BLOOD CULTURE Stat Lab 03/29/24 19:34 Received CBC W DIFF Stat Lab 03/29/24 19:34 Completed CMP Stat Lab 03/29/24 19:34 Completed HCG QUALITATIVE, SERUM Stat Lab 03/29/24 19:34 Completed LIPASE Stat Lab 03/29/24 19:34 Completed Lactic Acid Stat Lab 03/29/24 19:42 Completed MONO SCREEN Stat Lab 03/29/24 Completed TROPONIN Q4H Lab 03/29/24 19:43 Completed TROPONIN Q4H Lab 03/30/24 00:15 Ordered TROPONIN Q4H Lab 03/30/24 04:15 Ordered UA W/RFX UR CULTURE Stat Lab 03/29/24 20:06 Completed Medication Summary Discontinued Medications Generic Name Dose Route Start Last Admin Trade Name Freq PRN Reason Stop Dose Admin Sodium Chloride 1,000 mls @ 999 mls/hr 03/29/24 19:16 03/29/24 20:50 Sodium Chloride 0.9% 1000 Ml IV 03/29/24 20:16 Infused .Q1H1M STA Infusion Sodium Chloride Confirm 03/29/24 19:35 Sodium Chloride 0.9% 1000 Ml Administered 03/29/24 19:36 Dose 1,000 mls @ ud .ROUTE .STK-MED ONE Lactated Ringer's 1,000 mls @ 999 mls/hr 03/29/24 20:28 03/29/24 20:42 Lactated Ringers IV 03/29/24 21:28 999 mls/hr .Q1H1M ONE Administration Lactated Ringer's Confirm 03/29/24 20:41 Lactated Ringers Administered 03/29/24 20:42 Dose 1,000 mls @ ud IV .K-[facility] ONE Pantoprazole Sodium 40 mg 03/29/24 19:16 03/29/24 19:34 Pantoprazole 40 Mg Vial IV 03/29/24 19:17 Not Given STAT ONE Prochlorperazine Edisylate 5 mg 03/29/24 19:16 03/29/24 19:43 Prochlorperazine Edisylate 10 Mg/2 Ml Vial IV 03/29/24 19:17 5 mg STAT ONE Administration Prochlorperazine Edisylate Confirm 03/29/24 19:35 Prochlorperazine Edisylate 10 Mg/2 Ml Vial Administered 03/29/24 19:36 Dose 10 mg .ROUTE .K-MED ONE Lab/Rad Data: Laboratory Result Diagrams 03/29/24 19:34 03/29/24 19:34 Laboratory Results 03/29/24 03/29/24 03/29/24 Range/Units Unknown 20:20 20:06 WBC (3.98-10.04) x10^3/uL RBC (3.93-5.22) x10^6/uL Hgb (11.2-15.7) g/dL Hct (34.1-44.9) % MCV (79.4-94.8) fL MCH (25.6-32.2) pg MCHC (32.2-35.5) g/dL RDW (11.7-14.4) % Plt Count (182-369) x10^3/uL MPV (9.4-12.3) fL Gran % (34.0-71.1) % Immature Gran % (Auto) (0.001-0.429) % Nucleat RBC Rel Count (0.00-0.2) % Eos # (Auto) (0.04-0.36) x10^3/uL Immature Gran # (Auto) (0.001-0.031) x10^3u/L Absolute Lymphs (auto) (1.18-3.74) x10^3/uL Absolute Monos (auto) (0.24-0.86) x10^3/uL Absolute Nucleated RBC (0.00-0.012) x10^3u/L Lymphocytes % (19.3-51.7) % Monocytes % (4.7-12.5) % Eosinophils % (0.7-5.8) % Basophils % (0.1-1.2) % Absolute Granulocytes (1.56-6.13) x10^3/uL Basophils # (0.01-0.08) x10^3/uL Sodium (135-145) mmol/L Potassium (3.5-5.1) mmol/L Chloride (98-107) mmol/L Carbon Dioxide (22-30) mmol/L Anion Gap (5-15) MEQ/L BUN (7-17) mg/dL Creatinine (0.52-1.04) mg/dL Estimated GFR ML/MIN Glucose (74-106) mg/dL Lactic Acid (0.4-2.0) Calcium (8.4-10.2) mg/dL Total Bilirubin (0.2-1.3) mg/dL AST (14-36) U/L ALT (0-35) U/L Alkaline Phosphatase (38-126) U/L Troponin I (0.000-0.033) ng/mL Serum Total Protein (6.3-8.2) g/dL Albumin (3.5-5.0) g/dL Amylase (30-110) U/L Lipase (23-300) U/L Serum HCG, Qual (NEGATIVE) Urine Color Yellow (Yellow) Urine Appearance Clear (Clear) Urine pH 6.5 (4.6-8.0) Ur Specific Chemult 1.010 (1.005-1.030) Urine Protein Negative (Negative) Urine Glucose (UA) Negative (Negative) mg/dL Urine Ketones Negative (Negative) Urine Blood Negative (Negative) Urine Nitrite Negative (Negative) Urine Bilirubin Negative (Negative) Urine Urobilinogen 0.2 (0.2) mg/dL Ur Leukocyte Esterase Trace A (Negative) U Hyaline Cast (Auto) NONE SEEN (0-2) /LPF Urine Microscopic RBC 0-2 (0-5) /HPF Urine Microscopic WBC 3-5 (0-5) /HPF Ur Epithelial Cells Few (None Seen) /HPF Urine Bacteria None Seen (None Seen) /HPF Urine Culture Reflexed NO (NO) Monoscreen POSITIVE A (NEGATIVE) Influenza Type A Ag NEGATIVE (NEGATIVE) Influenza Type B Ag NEGATIVE (NEGATIVE) RSV (PCR) NEGATIVE (NEGATIVE) SARS-CoV-2 (PCR) NEGATIVE (NEGATIVE) 03/29/24 03/29/24 03/29/24 Range/Units 19:43 19:42 19:34 WBC (3.98-10.04) x10^3/uL RBC (3.93-5.22) x10^6/uL Hgb (11.2-15.7) g/dL Hct (34.1-44.9) % MCV (79.4-94.8) fL MCH (25.6-32.2) pg MCHC (32.2-35.5) g/dL RDW (11.7-14.4) % Plt Count (182-369) x10^3/uL MPV (9.4-12.3) fL Gran % (34.0-71.1) % Immature Gran % (Auto) (0.001-0.429) % Nucleat RBC Rel Count (0.00-0.2) % Eos # (Auto) (0.04-0.36) x10^3/uL Immature Gran # (Auto) (0.001-0.031) x10^3u/L Absolute Lymphs (auto) (1.18-3.74) x10^3/uL Absolute Monos (auto) (0.24-0.86) x10^3/uL Absolute Nucleated RBC (0.00-0.012) x10^3u/L Lymphocytes % (19.3-51.7) % Monocytes % (4.7-12.5) % Eosinophils % (0.7-5.8) % Basophils % (0.1-1.2) % Absolute Granulocytes (1.56-6.13) x10^3/uL Basophils # (0.01-0.08) x10^3/uL Sodium (135-145) mmol/L Potassium (3.5-5.1) mmol/L Chloride (98-107) mmol/L Carbon Dioxide (22-30) mmol/L Anion Gap (5-15) MEQ/L BUN (7-17) mg/dL Creatinine (0.52-1.04) mg/dL Estimated GFR ML/MIN Glucose (74-106) mg/dL Lactic Acid 1.2 (0.4-2.0) Calcium (8.4-10.2) mg/dL Total Bilirubin (0.2-1.3) mg/dL AST (14-36) U/L ALT (0-35) U/L Alkaline Phosphatase (38-126) U/L Troponin I < 0.012 (0.000-0.033) ng/mL Serum Total Protein (6.3-8.2) g/dL Albumin (3.5-5.0) g/dL Amylase (30-110) U/L Lipase (23-300) U/L Serum HCG, Qual NEGATIVE (NEGATIVE) Urine Color (Yellow) Urine Appearance (Clear) Urine pH (4.6-8.0) Ur Specific Chemult (1.005-1.030) Urine Protein (Negative) Urine Glucose (UA) (Negative) mg/dL Urine Ketones (Negative) Urine Blood (Negative) Urine Nitrite (Negative) Urine Bilirubin (Negative) Urine Urobilinogen (0.2) mg/dL Ur Leukocyte Esterase (Negative) U Hyaline Cast (Auto) (0-2) /LPF Urine Microscopic RBC (0-5) /HPF Urine Microscopic WBC (0-5) /HPF Ur Epithelial Cells (None Seen) /HPF Urine Bacteria (None Seen) /HPF Urine Culture Reflexed (NO) Monoscreen (NEGATIVE) Influenza Type A Ag (NEGATIVE) Influenza Type B Ag (NEGATIVE) RSV (PCR) (NEGATIVE) SARS-CoV-2 (PCR) (NEGATIVE) 03/29/24 03/29/24 Range/Units 19:34 19:34 WBC 10.3 H (3.98-10.04) x10^3/uL RBC 4.72 (3.93-5.22) x10^6/uL Hgb 14.3 (11.2-15.7) g/dL Hct 43.7 (34.1-44.9) % MCV 92.6 (79.4-94.8) fL MCH 30.3 (25.6-32.2) pg MCHC 32.7 (32.2-35.5) g/dL RDW 13.6 (11.7-14.4) % Plt Count 229 (182-369) x10^3/uL MPV 10.1 (9.4-12.3) fL Gran % 68.7 (34.0-71.1) % Immature Gran % (Auto) 0.8 H (0.001-0.429) % Nucleat RBC Rel Count 0.0 (0.00-0.2) % Eos # (Auto) 0.19 (0.04-0.36) x10^3/uL Immature Gran # (Auto) 0.08 H (0.001-0.031) x10^3u/L Absolute Lymphs (auto) 2.13 (1.18-3.74) x10^3/uL Absolute Monos (auto) 0.73 (0.24-0.86) x10^3/uL Absolute Nucleated RBC 0.00 (0.00-0.012) x10^3u/L Lymphocytes % 20.7 (19.3-51.7) % Monocytes % 7.1 (4.7-12.5) % Eosinophils % 1.8 (0.7-5.8) % Basophils % 0.9 (0.1-1.2) % Absolute Granulocytes 7.06 H (1.56-6.13) x10^3/uL Basophils # 0.09 H (0.01-0.08) x10^3/uL Sodium 137 (135-145) mmol/L Potassium 4.6 (3.5-5.1) mmol/L Chloride 103 (98-107) mmol/L Carbon Dioxide 21 L (22-30) mmol/L Anion Gap 17.6 H (5-15) MEQ/L BUN 12 (7-17) mg/dL Creatinine 0.93 (0.52-1.04) mg/dL Estimated GFR 82.7 ML/MIN Glucose 93 (74-106) mg/dL Lactic Acid (0.4-2.0) Calcium 9.8 (8.4-10.2) mg/dL Total Bilirubin 1.20 (0.2-1.3) mg/dL AST 40 H (14-36) U/L ALT 78 H (0-35) U/L Alkaline Phosphatase 102 (38-126) U/L Troponin I (0.000-0.033) ng/mL Serum Total Protein 9.0 H (6.3-8.2) g/dL Albumin 4.8 (3.5-5.0) g/dL Amylase 59 (30-110) U/L Lipase 46 (23-300) U/L Serum HCG, Qual (NEGATIVE) Urine Color (Yellow) Urine Appearance (Clear) Urine pH (4.6-8.0) Ur Specific Chemult (1.005-1.030) Urine Protein (Negative) Urine Glucose (UA) (Negative) mg/dL Urine Ketones (Negative) Urine Blood (Negative) Urine Nitrite (Negative) Urine Bilirubin (Negative) Urine Urobilinogen (0.2) mg/dL Ur Leukocyte Esterase (Negative) U Hyaline Cast (Auto) (0-2) /LPF Urine Microscopic RBC (0-5) /HPF Urine Microscopic WBC (0-5) /HPF Ur Epithelial Cells (None Seen) /HPF Urine Bacteria (None Seen) /HPF Urine Culture Reflexed (NO) Monoscreen (NEGATIVE) Influenza Type A Ag (NEGATIVE) Influenza Type B Ag (NEGATIVE) RSV (PCR) (NEGATIVE) SARS-CoV-2 (PCR) (NEGATIVE) - Progress Progress: improved Progress Note: 03/29/24 20:05 My medical decision making and the assignment of moderate complexity to this patient's medical issue today is based on review of the patient's past medical history, review the patient's medication list, review patient drug allergy list, history present illness and physical findings on examination. This patient's workup includes placement of intravenous line, infusion of normal saline solution, infusion of Compazine IV, CBC, CMP, amylase, lipase, urinalysis, CT scan of the abdomen pelvis without contrast, viral swabs, monotest, twelve-lead EKG and troponin level. Differential diagnosis includes but is not limited to coronary artery disease/myocardial infarction, pancreatitis, gastroenteritis, gastritis, ulcer disease, bowel obstruction, gallbladder abnormalities, urinary tract infection 03/29/24 21:13 I interpreted the patient's laboratory data results. Patient does have mononucleosis. She has very mild dehydration. 03/29/24 21:[address] scan of the abdomen pelvis without contrast was interpreted by the radiologist and I reviewed the impression. The impression states noncontrast CT scan of the abdomen pelvis demonstrates normal findings without evidence of acute intra-abdominal or pelvic pathology. There is a normal appendix. There is no free air and no free fluid. Counseled pt/family regarding: lab results, diagnosis, need for follow-up, rad results Medical Desision Making - Independent Historian Additional History obtained from: Spouse - Diagnostic Testing Diagnostic test were ordered, analyzed, and reviewed by me: Yes Radiological Interpretation: Reviewed by me, Teleradiologist Report - Risk of complications The pt has a mod risk of morbidity or mortality based on: Need for prescription drug management - Departure Departure Disposition: Home Clinical Impression: Mild dehydration, Vomiting, Mononucleosis Condition: Stable Critical Care Time: No Referrals: REYNA MONTGOMERY NP [Primary Care Provider] - Follow up/PCP as directed Additional Instructions: Drink plenty of clear liquids. Use your antinausea medication as prescribed 30 to 40 minutes prior to clear liquid diet. Avoid fatty greasy spicy foods. Call your primary care provider on 04/01/2024, to make arrangements for a referral to a mineral surveyor as well as to make arrangements for outpatient gallbladder ultrasound and to be seen in approximately 3 to 5 days. Prescriptions: Prochlorperazine Maleate 5 mg* [Compazine 5 MG] 5 mg PO Q8H PRN #10 tablet PRN Reason: Nausea/Vomiting
[2024-03-29] MEDS: PROTONIX 40 MG IV IV ONE (19:34)
[2024-03-29] MEDS ORDERED: Sodium Chloride 0.9% 1000 ML 1,000 ML ONE (19:35)
[2024-03-29] MEDS ORDERED: Compazine 10 MG/2 ML ONE (19:35)
[2024-03-29] MEDS: Sodium Chloride 0.9% 1000 ML 1,000 ML IV STA (19:43)
[2024-03-29] MEDS: Compazine 10 MG/2 ML IV ONE (19:43)
[2024-03-29 19:49] LABS: Absolute Neutrophil Ct (ANC) 7.06 x10^3/uL (1.56-6.13); BASOPHIL % 0.9 % (0.1-1.2); Basophil (Absolute #) 0.09 x10^3/uL (0.01-0.08); Eosinophil % 1.8 % (0.7-5.8); Eosinophil (Absolute #) 0.19 x10^3/uL (0.04-0.36); Hematocrit 43.7 % (34.1-44.9); Hemoglobin 14.3 g/dL (11.2-15.7); IMMATURE GRAN # 0.08 x10^3u/L (0.001-0.031); IMMATURE GRAN % 0.8 % (0.001-0.429); Lymphocyte (Absolute #) 2.13 x10^3/uL (1.18-3.74); Lymphocytes % 20.7 % (19.3-51.7); Mean Cell Volume 92.6 fL (79.4-94.8); Mean Corpuscular Hemoglobin 30.3 pg (25.6-32.2); Mean Corpuscular Hgb Concent. 32.7 g/dL (32.2-35.5); Mean Platelet Volume 10.1 fL (9.4-12.3); Monocyte (Absolute #) 0.73 x10^3/uL (0.24-0.86); Monocytes % 7.1 % (4.7-12.5); Neutrophil % 68.7 % (34.0-71.1); Platelet Count 229 x10^3/uL (182-369); Red Blood Count 4.72 x10^6/uL (3.93-5.22); Red Cell Distribution Width 13.6 % (11.7-14.4); White Blood Count 10.3 x10^3/uL (3.98-10.04)
[2024-03-29 20:02] LABS: ALBUMIN 4.8 g/dL (3.5-5.0); ANION GAP 17.6 MEQ/L (5-15); BILIRUBIN,TOTAL 1.2 mg/dL (0.2-1.3); Calcium 9.8 mg/dL (8.4-10.2); Creatinine 1 0.93 mg/dL (0.52-1.04); EST GLOMERULAR FILTRATION RATE 82.7 ML/MIN; Potassium 4.6 mmol/L (3.5-5.1)
[2024-03-29 20:04] LABS: HCG SERUM TEST NEGATIVE (NEGATIVE)
[2024-03-29 20:16] LABS: Appearance Clear (Clear); Bacteria None Seen /HPF (None Seen); Bilirubin Negative (Negative); Blood Negative (Negative); Epithelial Cells Few /HPF (None Seen); Glucose, Urine Negative (Negative); Hyaline Casts NONE SEEN /LPF (0-2); Ketones Negative (Negative); Leukocyte Esterase Trace (Negative); Nitrite Negative (Negative); Ph 6.5 (4.6-8.0); Protein,Urine Dip Negative (Negative); RBC 0-2 /HPF (0-5); Urobilinogen 0.2 mg/dL (0.2)
[2024-03-29 20:17] LABS: ADD URINE CULTURE? NO (NO)
[2024-03-29] MEDS ORDERED: Lactated Ringers 1,000 ML IV ONE (20:41)
[2024-03-29] MEDS: Lactated Ringers 1,000 ML IV ONE (20:42)
[2024-03-29 20:57] LABS: INFLUENZA A NEGATIVE (NEGATIVE); INFLUENZA B NEGATIVE (NEGATIVE); RESPIRATORY SYNCTIAL VIRUS NEGATIVE (NEGATIVE); SARS-CoV-2 Xpert Express NEGATIVE (NEGATIVE)
--- NOTE | 2024-03-29 21:45 | XRAY ---
CLINICAL HISTORY: Intermittent, intractable vomiting COMPARISON: No prior studies available for comparison TECHNIQUE: Non-contrast CT of the abdomen and pelvis was performed, with the following protocol: axial images with thin slices, and reconstructed coronal and sagittal images. No intravenous contrast was administered. One of the following dose reduction techniques was utilized for this exam: Automated exposure control, adjustment of the mA and/or kV according to patient size, and use of iterative reconstruction. FINDINGS: Liver: Normal in size, shape, and density. No focal lesions, cysts, or masses were identified. Gallbladder and Biliary System: The gallbladder is normal in size and shape. No wall thickening, pericholecystic fluid, or gallstones were identified. Pancreas: Pancreatic head, body, and tail are visualized and appear normal in size and density. No pancreatic masses or calcifications were noted. Spleen: Normal in size, shape, and density. No splenic lesions or masses were identified. Kidneys and Adrenal Glands: Both kidneys are normal in size, shape, and position. Cortical thickness is within normal limits. No renal calculi or hydronephrosis. Adrenal glands are unremarkable. Abdominal Aorta and Vessels: The abdominal aorta and major branches are patent without evidence of an aneurysm or significant atherosclerosis. Peritoneal and Retroperitoneal Structures: No free fluid or abnormal fluid collections were identified within the abdomen or pelvis. No lymphadenopathy was noted. Bones and Soft Tissues: Pelvic bones and soft tissues are unremarkable. No fractures or abnormal masses were identified. Appendix: No evidence of appendicitis. IMPRESSION: 1. Overall, non-contrast CT abdomen and pelvis demonstrate normal findings without evidence of acute intra-abdominal pathology. Clinical correlation is recommended for further evaluation. Electronically Signed by: John Hayden MD. (03/29/2024 21:41:48 EDT)
[2024-03-29 22:12] VITALS: BP 115/73; PULSE 82; O2SAT 99
== END 2024-03-29 22:13 | disposition home or self-care (01) ==
LOC: ED 18:33
DX: R11.10 Vomiting, unspecified (principal); E86.0 Dehydration; B27.90 Infectious mononucleosis, unspecified without complication
CPT/HCPCS: 0241U; 36000; 36415; 74176; 80053; 81001; 82150; 83605; 83690; 84484; 84703; 85025; 86308; 87040; 93005; 96360; 99284